=== PATIENT | female | born 1940 | race Caucasian/White ===

== ENCOUNTER → 2017-07-01 | Outpatient (CLI) | payer OTHER ==
--- NOTE | 2017-07-01 13:43 | MAMMOGRAPHY REPORT ---
BILATERAL DIGITAL DIAGNOSTIC MAMMOGRAM TOMOSYNTHESIS WITH CAD: 07/01/2017 CLINICAL HISTORY: Patient presents for a close follow-up of benign-appearing punctate microcalcificat ions in the posterior left breast, and also due for annual bilateral mammography. TECHNIQUE: Bilateral breast tomosynthesis in addition to standard 2D mammography was performed. Spot magnification left CC and ML views were also obtained. Current study was also evaluated with a Comp uter Aided Detection (CAD) system. COMPARISON: Comparison is made to exams dated: 06/30/2016 mammogram, 12/25/2015 mammogram, 06/21/2015 ultrasound, 06/21/2015 mammogram, 06/15/2015 mammogram, and 06/14/2014 mammogram - [facility]. BREAST COMPOSITION: The tissue of both breasts is almost entirely fatty. FINDINGS: Full field mammograms do not demonstrate any new suspicious masses, asymmetries or areas of architectural distortion. Previously observed nodular asymmetries in the right breast are no longer identified, confirming benignity. Again noted is a small grouping of microcalcifications in the 5:0 0 to 6:00 posterior left breast. When assessing these calcifications on the spot magnification views , they measure 2.9 mm in maximum dimension and have an amorphous morphology. When comparing back to prior spot magnification views, they are minimally increased in number comparing to those obtained on 06/21/2015. Therefore, they are considered indeterminate and definitive characterization with tissu e sampling is recommended. A discussion ensued regarding these calcifications and my preference for tissue sampling given a alvarez ge on the spot magnification views. However the change is very minimal and has occurred very slowly over the past 2 years, suggesting an indolent process. The patient would prefer to follow them as op posed to biopsy at this time and I think that could be a reasonable option given the very slow change . If we continue to follow would recommend repeat spot magnification views in 12 months at time of n ext annual bilateral exam. IMPRESSION: ACR BI-RADS CATEGORY 4: SUSPICIOUS There has been minimal interval increase in number of a small 2.9 mm grouping of amorphous macrocalci fications in the 5:00 to 6:00 posterior left breast, when comparing back to the 2015 mammograms. Giv en the slight detected change tissue sampling was recommended, and is my preference, although the pat ient wishes to continue watching him at this time. 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 Therefore she can obtain repeat spot magnification views at the time of next annual bilateral mammog scott in 1 year. Approximately 10% of breast cancers are not detected with mammography. A negative mammographic report should not delay biopsy if a clinically suggestive mass is present. Melba Butler M.D. ay/:07/01/2017 11:17:44 Field Reimbursement Manager: Salome RIVERS)(Min), [facility] letter sent: Abnormal 4/5 BI-RADS Code: ACR BI-RADS Category 4: Suspicious
== END | disposition home or self-care (01) ==
LOC: C.MAMM 10:38
PROVIDERS: ATTEND Internal Medicine
DX: R92.0 Mammographic microcalcification found on diagnostic imaging of breast (principal)

== ENCOUNTER → 2017-07-04 | Outpatient (CLI) | payer OTHER ==
[2017-07-04 12:07] LABS: BASO % 0.5 %; BASO ABS # 0.03 K/uL (0-0.2); COMPLETE YES; EOS % 2.7 %; HEMATOCRIT 44.4 % (37-47); IG% 0.3 %; LYMPH % 24.2 %; LYMPH ABS # 1.51 K/uL (1.2-3.4); MEAN CELL VOLUME 92.7 fL (80-100); MEAN CORPUSCULAR HEMOGLOBIN 31.1 pg (25-34); MEAN CORPUSCULAR HGB CONC 33.6 g/dl (32-36); MEAN PLATELET VOLUME 11.1 fL (7.4-10.4); MONO % 6.1 %; NEUT % 66.2 %; PLATELET COUNT 196 K/uL (130-400); RED BLOOD COUNT 4.79 M/uL (4.2-5.4); WHITE BLOOD COUNT 6.23 K/uL (4.8-10.8)
[2017-07-04 12:38] LABS: ALT/SGPT 25 U/L (12-78); BLOOD UREA NITROGEN 18 mg/dl (7-18); BUN/CREATININE RATIO 18.6 (10-20); CARBON DIOXIDE 29 mmol/L (21-32); CHLORIDE 105 mmol/L (98-107); CHOLESTEROL 219 mg/dl (0-200); CREATININE 0.98 mg/dl (0.60-1.20); GLUCOSE 91 mg/dl (70-99); SODIUM 140 mmol/L (136-145); TRIGLYCERIDES 157 mg/dl (0-150); VERY LOW DENSITY LIPOPROT CALC 31 mg/dl
[2017-07-04 12:49] LABS: ALKALINE PHOSPHATASE 53 U/L (45-117); AST/SGOT 22 U/L (15-37); CHOLESTEROL/HDL RATIO 3.3; FERRITIN 39.5 ng/ml (8.0-388.0); HDL CHOLESTEROL 67 mg/dl; LDL CHOLESTEROL CALCULATED 121 mg/dl
== END | disposition home or self-care (01) ==
LOC: C.LAB 10:40
PROVIDERS: ATTEND Internal Medicine
DX: M81.0 Age-related osteoporosis without current pathological fracture (principal)

== ENCOUNTER → 2017-07-17 | Outpatient (CLI) | payer OTHER | END | disposition home or self-care (01) | LOC: C.RDSM 14:11 | PROVIDERS: ATTEND Orthopaedic Surgery | DX: R52 Pain, unspecified (principal) ==

== ENCOUNTER → 2017-07-20 | Outpatient (CLI) | payer OTHER ==
[2017-07-20 12:28] LABS: BLOOD UREA NITROGEN 22 mg/dl (7-18); BUN/CREATININE RATIO 19.6 (10-20); CALCIUM 9.6 mg/dl (8.5-10.1); CARBON DIOXIDE 27 mmol/L (21-32); CHLORIDE 102 mmol/L (98-107); CREATININE 1.14 mg/dl (0.60-1.20); GLUCOSE 100 mg/dl (70-99); POTASSIUM 3.7 mmol/L (3.5-5.1); SODIUM 138 mmol/L (136-145)
[2017-07-22 03:31] LABS: ANTI-SS-A <1.0 NEG AI (<1.0 NEG); ANTI-SS-B <1.0 NEG AI (<1.0 NEG)
== END | disposition home or self-care (01) ==
LOC: C.LAB 10:36
PROVIDERS: ATTEND Internal Medicine
DX: I10 Essential (primary) hypertension (principal); M25.562 Pain in left knee

== ENCOUNTER 2021-07-04 17:24 | Inpatient (IN) ==
--- NOTE | 2021-07-04 18:20 | Emergency Department Note ---
Impression & Plan Bilateral pulmonary embolism, Mass of right lung, Hypoxia, Elevated brain natriuretic peptide (BNP) level ED Provider Note NAME: NIKOS WASSERMAN AGE: 80 SEX: F ARRIVES VIA: Ambulance INFORMANT: Patient ED PROVIDER(S): Jace Guajardo MD CHIEF COMPLAINT: Shortness of breath, edema. PLAN: Disposition: Admit MEDICAL DECISION MAKING: The patient is a pleasant 80-year-old woman with a past medical history of hypertension, hyperlipidemia who presents to emergency department via EMS for worsening shortness of breath over the past several days in the setting of ongoing shortness of breath and productive cough and congestion for the past month and a half where she has then developed bilateral lower extremity swelling. She reports she did have a COVID-19 a couple of weeks ago that was negative. She is vaccinated for COVID-19 numerous months ago and denies known COVID-19 exposures. She reports she did not contact her PCPs office because it "takes too long to be seen". She denies fevers, nausea, vomiting, diarrhea or urinary symptoms. She reports her legs have gotten so swollen and she has felt so fatigued that she is not walking over the past 24 hours. On arrival the patient is uncomfortable but no acute distress, afebrile with heart rate in the 90s stable vital signs. She appears hypervolemic with 2+ bilateral lower extremity pitting edema and mild JVD. She has diminished breath sounds throughout. EKG without overt acute ischemia. Chest X-ray demonstrates right upper lobe masslike consolidation better clarified on CT. WBC 14K, nonspecific. H/H and platelets within normal limits. Chemistry without metabolic acidosis. Electrolytes without significant abnormality. LFTs unremarkable. Troponin negative/undetectable. BNP is elevated at 6900 without prior values for comparison. Lipase within normal limits. COVID-19 PCR negative. Influenza PCR negative. RSV PCR negative. Her preliminary stat rad report CT of the chest demonstrates large bilateral pulmonary emboli with evidence of right heart strain. Large hiatal hernia is noted. Upon evaluation the patient continued to remain hemodynamically stable with O2 saturation 98% on 3 L nasal cannula. I reviewed the findings with the patient at the bedside. Denies any history of GI bleeding or bleeding otherwise. She agrees with plan for treatment with anticoagulation and admission. Case was discussed with [facility] [place] [facility] admitting resident with Dr. Ribeiro, [facility] hospitalist, who will evaluate the patient for admission. Triage Nursing notes reviewed and agree them. prior medical records reviewed Vital Signs: reviewed and remarkable for hypoxia. Differential diagnosis: Reactive airway disease, pneumonia, pneumothorax, COPD, CHF, infections, cardiac ischemia, pulmonary embolism, musculoskeletal, gastrointestinal, as well as other pathologies. ER treatment provided: See below. Diagnostics interpreted by me: ECG: Normal sinus rhythm, 86 bpm, no ectopy, no overt ST elevation or depression, QTC 430, QRS 66. Cardiac Monitoring: An order for continuous cardiac monitoring was placed and demonstrated normal sinus rhythm, 86 bpm, no ectopy. Laboratory studies: see below Imaging studies: See below STATRAD Preliminary Findings Only See Final Report For Complete Findings CTA CHEST: Large bilateral pulmonary emboli with right heart strain. Patchy bilateral pulmonary consolidations. Masslike consolidation lesion in the right upper lung field. Cardiomegaly. Large hiatal hernia with herniation of the stomach, omentum and the portions of the colon. Colonic diverticula. Small low-attenuation foci in the liver. Old granulomatous disease. Consultation(s): Case was discussed with Dr. Church, [facility] admitting resident with Dr. Ribeiro, [facility] hospitalist, who will evaluate the patient for admission. HPI: The patient is a pleasant 80-year-old woman with a past medical history of hypertension, hyperlipidemia who presents to emergency department via EMS for worsening shortness of breath over the past several days in the setting of ongoing shortness of breath and productive cough and congestion for the past month and a half where she has then developed bilateral lower extremity swelling. She reports she did have a COVID-19 a couple of weeks ago that was negative. She is vaccinated for COVID-19 numerous months ago and denies known COVID-19 exposures. She reports she did not contact her PCPs office because it "takes too long to be seen". She denies fevers, nausea, vomiting, diarrhea or urinary symptoms. She reports her legs have gotten so swollen and she has felt so fatigued that she is not walking over the past 24 hours. ROS: See above HPI for pertinent positives & negatives. A total of 10 systems reviewed and were otherwise negative. PAST MEDICAL HISTORY: see Below PAST SURGICAL HISTORY: see Below FAMILY HISTORY:See Below SOCIAL HISTORY: see Below HOME MEDICATIONS: see Below ALLERGIES: see Below VITALS: see Below PHYSICAL EXAMINATION: GENERAL: Awake, alert, fatigued-appearing, in no distress HENT: Normocephalic, atraumatic. Oropharynx unremarkable. EYES: Normal conjunctiva. Sclera non-icteric. NECK: Supple. No nuchal rigidity. FROM. Mild JVD. RESPIRATORY: Diminished breath sounds bilaterally. Mildly dyspneic without significant work of breathing. CARDIAC: Regular rate, normal rhythm. Extremities warm and well perfused. Pulses equal. ABDOMEN: Soft, non-distended. No tenderness to palpation. No rebound or guarding. No masses. RECTAL: Deferred. MUSCULOSKELETAL: Chest examination reveals no tenderness. The back is symmetrical on inspection without obvious abnormality. There is no CVA tenderness to palpation. No joint edema. LOWER EXTREMITIES: Calves are equal size bilaterally and non-tender. 2+ bilateral lower extremity pitting edema. No discoloration. NEURO: Normal sensorium. No sensory or motor deficits noted. SKIN: No rash or jaundice noted. ED COURSE: Critical Care: I have personally spent greater than 45 minutes of critical care time in the direct management of this patient. This includes bedside care, interpretation of diagnostic studies, and testing, discussion with consultants, patient, and family members, and other required patient management activities. This 45 minutes is in excess of all separately billable procedures. 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) Hyperlipidemia Hypertension Iron deficiency anemia due to chronic blood loss Left knee pain Lumbar facet joint syndrome Melanocytic nevus of left lower extremity Melanocytic nevus of right lower extremity Melanocytic nevus of trunk Muscle weakness Osteoporosis, senile Peroneal muscular atrophy Reactive depression (situational) Renal insufficiency, mild Restless legs syndrome Sacroiliac joint pain Schatzki's ring Sensorineural hearing loss (SNHL) of both ears Sicca syndrome Stage 3a chronic kidney disease Surgical History History of blepharoplasty History of colonoscopy 2010 History of endoscopy capsule endoscopy-2006 History of esophagogastroduodenoscopy (EGD) 200, 2005 History of surgery history of coronal brow lift History of vein stripping Status post biopsy of skin Family History Mother Heart disease Chronic venous embolism and thrombosis of deep vessels of lower extremity Breast cancer Unknown Axjjjef-Xldgi-Ffsvf disease Father Myocardial infarction Uncle Prostate cancer Denies family history of Ovarian cancer Colorectal cancer Social History Smoking Status: Never smoker Second Hand Exposure: No; Hx Alcohol Use: Yes Alcohol type: beer, wine and hard liquor Alcohol Intake Frequency: 2-4 x/Month Hx Substance Use: No Preferred Language: [place]ese Visual Impairment: Limited Hearing Ability: Normal Playground Attendant Required: No marital status: Current Living Situation: Alone current occupational status: retired How many Children do You have: 2 Feels Safe at Home: Yes and No Childhood Exposure to Second-Hand Smoke: Yes caffeine: Yes Dental Care, Regularly: Yes Physical Activity Frequency: 3-4 Times per Week Seatbelt Use: always Sunscreen Use: Yes Allergies Allergies Allergy/AdvReac Type Severity Reaction Status Date / Time animal dander Allergy Intermediate CONGESTION Verified 07/04/21 18:19 mold Allergy Intermediate CONGESTION Verified 07/04/21 18:19 pollen extracts Allergy Intermediate CONGESTION Verified 07/04/21 18:19 adhesive tape Allergy Mild SKIN Verified 07/04/21 18:19 IRRITATION fluoxetine [From Prozac] Allergy Unknown Unknown Verified 07/04/21 18:19 Influenza Virus Vaccines Allergy Unknown Unknown Verified 07/04/21 18:19 latex Allergy Unknown Unknown Verified 07/04/21 18:19 NSAIDS (Non-Steroidal AdvReac Intermediate POSSIBLE Verified 07/04/21 18:19 Anti-Inflamma KIDNEY DAMAGE PER PT. Home Meds Previous Rx's Medication Instructions Recorded gabapentin 300 mg capsule 300 mg PO BID #180 cap 11/12/20 metoprolol succinate 25 mg 25 mg PO DAILY #90 tab 11/12/20 tablet,extended release 24 hr duloxetine 20 mg capsule,delayed 20 mg PO DAILY #30 cap 05/30/21 release Results & Data (ED) Vital Signs Vital Signs - 24 hr 07/04/21 18:10 07/04/21 18:15 07/04/21 18:45 Temperature 36.9 C Temperature Source Oral Pulse Rate 93 H 84 Pulse Rate [Apical] Pulse Rhythm Regular Pulse Rhythm [Apical] Pulse Strength [Apical] Respiratory Rate 18 20 Respiratory Effort / Characteristics Non-Labored Spontaneous Spontaneous Respiratory Depth Normal Normal Respiratory Pattern Regular Regular Blood Pressure 110/84 Blood Pressure [Right Arm] Blood Pressure Mean 92 Blood Pressure Mean [Right Arm] Blood Pressure Position Lying Pulse Oximetry 96 94 Oxygen Delivery Method Nasal Cannula Nasal Cannula Nasal Cannula Oxygen Flow Rate 4 4 3 Sepsis Recent Fever Within 48 Hours No Sepsis New/Unexplained Change in Mental Status N/A Sepsis Action Taken by Nursing No Action Required 07/04/21 22:16 Temperature Temperature Source Pulse Rate Pulse Rate [Apical] 88 Pulse Rhythm Pulse Rhythm [Apical] Regular Pulse Strength [Apical] Normal Respiratory Rate 20 Respiratory Effort / Characteristics Non-Labored Respiratory Depth Normal Respiratory Pattern Blood Pressure Blood Pressure [Right Arm] 105/76 Blood Pressure Mean Blood Pressure Mean [Right Arm] 85 Blood Pressure Position Pulse Oximetry 98 Oxygen Delivery Method Nasal Cannula Oxygen Flow Rate 3 Sepsis Recent Fever Within 48 Hours Sepsis New/Unexplained Change in Mental Status Sepsis Action Taken by Nursing Laboratory Data Attestation: I reviewed the patient's lab results. Result diagrams: 07/04/21 18:40 07/04/21 18:40 Lab Results 07/04/21 07/04/21 07/04/21 Range/Units 18:40 18:40 18:40 WBC 14.65 H (4.8-10.8) K/uL RBC 4.65 (4.2-5.4) M/uL Hgb 14.3 (12.0-16.0) g/dL Hct 42.3 (37-47) % MCV 91.0 (80-100) fL MCH 30.8 (25-34) pg MCHC 33.8 (32-36) g/dL RDW Std Deviation 51.1 H (36.4-46.3) fL RDW Coeff of Aurelio 15.4 H (11.5-14.5) % Plt Count 268 (130-400) K/uL MPV 11.1 H (7.4-10.4) fL Immature Gran % (Auto) 0.5 % Neut % (Auto) 85.0 % Lymph % (Auto) 7.5 % Waller % (Auto) 6.3 % Eos % (Auto) 0.5 % Baso % (Auto) 0.2 % Neut # (Auto) 12.44 H (1.4-6.5) K/uL Lymph # (Auto) 1.10 L (1.2-3.4) K/uL Waller # (Auto) 0.93 H (0.11-0.59) K/uL Eos # (Auto) 0.08 (0-0.5) K/uL Baso # (Auto) 0.03 (0-0.2) K/uL Immature Gran # (Auto) 0.07 H (0.00-0.02) K/uL PT 11.9 (9.0-12.0) Seconds INR 1.2 H (0.9-1.1) APTT (21.0-31.0) Seconds PTT Ratio Sodium 137 (136-145) mmol/L Potassium 4.2 (3.5-5.1) mmol/L Chloride 105 (98-107) mmol/L Carbon Dioxide 24 (21-32) mmol/L Anion Gap 9.0 (3-11) BUN 23 H (7-18) mg/dl Creatinine 1.10 (0.6-1.2) mg/dl Est Cr Clr Drug Dosing 44.7 ml/min Est GFR ( Amer) 54.9 ml/min Est GFR (Non-Af Amer) 47.4 ml/min BUN/Creatinine Ratio 21.1 H (10-20) Glucose 117 H (70-99) mg/dl Calcium 9.4 (8.5-10.1) mg/dl Phosphorus 3.1 (2.5-4.9) mg/dl Magnesium 2.2 (1.8-2.4) mg/dl Total Bilirubin 1.1 H (0.2-1) mg/dl AST 37 (15-37) U/L ALT 49 (12-78) U/L Alkaline Phosphatase 97 (45-117) U/L Troponin I < 0.015 (0-0.045) ng/ml NT-Pro-B Natriuret Pep 6952 H (0-1800) pg/ml Total Protein 7.3 (6.4-8.2) gm/dl Albumin 3.0 L (3.4-5.0) gm/dl Globulin 4.3 H (2.5-4.0) gm/dl Albumin/Globulin Ratio 0.7 L (0.9-2) Lipase 89 (73-393) U/L SARS-CoV-2 (PCR) (Negative) Influenza Type A (PCR) (Neg) Influenza Type B (PCR) (Neg) RSV (RT-PCR) (Neg) 07/04/21 07/04/21 Range/Units 18:59 23:13 WBC (4.8-10.8) K/uL RBC (4.2-5.4) M/uL Hgb (12.0-16.0) g/dL Hct (37-47) % MCV (80-100) fL MCH (25-34) pg MCHC (32-36) g/dL RDW Std Deviation (36.4-46.3) fL RDW Coeff of Aurelio (11.5-14.5) % Plt Count (130-400) K/uL MPV (7.4-10.4) fL Immature Gran % (Auto) % Neut % (Auto) % Lymph % (Auto) % Waller % (Auto) % Eos % (Auto) % Baso % (Auto) % Neut # (Auto) (1.4-6.5) K/uL Lymph # (Auto) (1.2-3.4) K/uL Waller # (Auto) (0.11-0.59) K/uL Eos # (Auto) (0-0.5) K/uL Baso # (Auto) (0-0.2) K/uL Immature Gran # (Auto) (0.00-0.02) K/uL PT (9.0-12.0) Seconds INR (0.9-1.1) APTT 26.0 (21.0-31.0) Seconds PTT Ratio 1.0 Sodium (136-145) mmol/L Potassium (3.5-5.1) mmol/L Chloride (98-107) mmol/L Carbon Dioxide (21-32) mmol/L Anion Gap (3-11) BUN (7-18) mg/dl Creatinine (0.6-1.2) mg/dl Est Cr Clr Drug Dosing ml/min Est GFR ( Amer) ml/min Est GFR (Non-Af Amer) ml/min BUN/Creatinine Ratio (10-20) Glucose (70-99) mg/dl Calcium (8.5-10.1) mg/dl Phosphorus (2.5-4.9) mg/dl Magnesium (1.8-2.4) mg/dl Total Bilirubin (0.2-1) mg/dl AST (15-37) U/L ALT (12-78) U/L Alkaline Phosphatase (45-117) U/L Troponin I (0-0.045) ng/ml NT-Pro-B Natriuret Pep (0-1800) pg/ml Total Protein (6.4-8.2) gm/dl Albumin (3.4-5.0) gm/dl Globulin (2.5-4.0) gm/dl Albumin/Globulin Ratio (0.9-2) Lipase (73-393) U/L SARS-CoV-2 (PCR) NEGATIVE (Negative) Influenza Type A (PCR) Negative (Neg) Influenza Type B (PCR) Negative (Neg) RSV (RT-PCR) Negative (Neg) Administered Medications Heparin Sodium/Dextrose (Heparin Sodium/Dextrose) 25,000 units in 500 mls @ 25 mls/hr IV .Q20H [facility]; Protocol Stop: 08/03/21 23:14 Last Admin: 07/05/21 00:13 Dose: 1,250 units/hr, 25 mls/hr Documented by: [id number] Cosigned by: [id number] Discontinued Medications Enoxaparin Sodium (Enoxaparin 1 Mg/Kg) 1 mg SQ NOW STA Stop: 07/04/21 22:46 Last Admin: 07/04/21 23:36 Dose: Not Given Documented by: [id number] Heparin Sodium (Porcine) (Heparin Sod (Porcine) 1000 Unit/Ml) 6,000 units IV NOW ONE Stop: 07/04/21 23:13 Last Admin: 07/05/21 00:12 Dose: 6,000 units Documented by: [id number] Cosigned by: [id number] Ioversol (Optiray 320 125ml) 115 ml IV ONCE ONE Stop: 07/04/21 21:57 Last Admin: 07/04/21 21:56 Dose: 115 ml Documented by: [id number] Imaging Data Radiologist's Impression: Chest X-Ray 07/04/21 18:13 XR chest 1V portable CLINICAL HISTORY: Chest Pain COMPARISON STUDY: No previous studies for comparison. FINDINGS: There is no pneumothorax. No definite pleural effusion is present. Note is made of cardiomegaly. There is no evidence for pulmonary edema. A large hiatal hernia is noted. This likely contains a portion of the transverse colon. Mild left basilar opacity is present. A right apical density is present IMPRESSION: 1. Right apical density. Although this could be artifactual, airspace opacity or mass could appear similar. Nonemergent chest CT is recommended for further evaluation. 2. Large hiatal hernia which likely contains a portion of the transverse colon. 3. Left basilar opacity. This likely reflects atelectasis although an infectious process could appear similar. This can be assessed on chest CT. ACT 112: Positive. There are findings on this exam that require communication between the performing entity and the patient following Patient Test Result Information Act ([place] Act 112) guidelines. Electronically signed by: Bj Crandall M.D. 07/04/2021 6:45 PM Discharge Plan Visit Data Chief Complaint: Shortness of Breath/Dyspnea Stated Complaint: SOB, EDEMA TO LEGS, HYPOXIA Discharge Problem: Bilateral pulmonary embolism, Mass of right lung, Hypoxia, Elevated brain natriuretic peptide (BNP) level Forms Stand Alone Forms: [facility] [employer] Prescriptions Prescriptions: No Action gabapentin 300 mg capsule 300 mg PO BID Qty: 180 RF: 3 metoprolol succinate 25 mg tablet extended release 24 hr 25 mg PO DAILY Qty: 90 RF: 3 duloxetine 20 mg capsule,delayed release(DR/EC) 20 mg PO DAILY Qty: 30 RF: 2 Referrals Referrals: Hoang Hawley MD [Primary Care Provider] -
--- NOTE | 2021-07-04 18:46 | XRay Report ---
XR chest 1V portable CLINICAL HISTORY: Chest Pain COMPARISON STUDY: No previous studies for comparison. FINDINGS: There is no pneumothorax. No definite pleural effusion is present. Note is made of cardiome brisa. There is no evidence for pulmonary edema. A large hiatal hernia is noted. This likely contains a portion of the transverse colon. Mild left basilar opacity is present. A right apical density is pr esent IMPRESSION: 1. Right apical density. Although this could be artifactual, airspace opacity or mass could appear si milar. Nonemergent chest CT is recommended for further evaluation. 2. Large hiatal hernia which likely contains a portion of the transverse colon. 3. Left basilar opacity. This likely reflects atelectasis although an infectious process could appear similar. This can be assessed on chest CT. ACT 112: Positive. There are findings on this exam that require communication between the performing entity and the patient following Patient Test Result Information Act ([place] Act 112) guidelines. Electronically signed by: Bj Crandall M.D. 07/04/2021 6:45 PM
[2021-07-04 19:13] LABS: Basophils # (auto) 0.03 K/uL (0-0.2); Basophils % (auto) 0.2 %; Eosinophils # (auto) 0.08 K/uL (0-0.5); Eosinophils % (auto) 0.5 %; Hematocrit (blood only) 42.3 % (37-47); Hemoglobin 14.3 g/dL (12.0-16.0); Immature Granulocytes # (auto) 0.07 K/uL (0.00-0.02); Immature Granulocytes % (auto) 0.5 %; Lymphocytes % (auto) 7.5 %; Mean Corpuscular Hemoglobin 30.8 pg (25-34); Mean Corpuscular Hgb Conc 33.8 g/dL (32-36); Mean Platelet Volume 11.1 fL (7.4-10.4); Monocytes # (auto) 0.93 K/uL (0.11-0.59); Monocytes % (auto) 6.3 %; Neutrophils # (auto) 12.44 K/uL (1.4-6.5); Platelet Count 268 K/uL (130-400); RDW Coefficient of Variation 15.4 % (11.5-14.5); RDW Standard Deviation 51.1 fL (36.4-46.3); Red Blood Count 4.65 M/uL (4.2-5.4); White Blood Count 14.65 K/uL (4.8-10.8)
[2021-07-04 19:30] LABS: Alanine Aminotransferase 49 U/L (12-78); Aspartate Aminotransferase 37 U/L (15-37); BUN Creatinine Ratio 21.1 (10-20); Blood Urea Nitrogen 23 mg/dl (7-18); Calcium 9.4 mg/dl (8.5-10.1); Carbon Dioxide 24 mmol/L (21-32); Chloride 105 mmol/L (98-107); Creatinine Clr Calc Pharmacy 44.7 ml/min; Est GFR (African American) 54.9 ml/min; Est GFR (Non-African American) 47.4 ml/min; Glucose 117 mg/dl (70-99); Lipase 89 U/L (73-393); Magnesium 2.2 mg/dl (1.8-2.4); Potassium 4.2 mmol/L (3.5-5.1); Sodium 137 mmol/L (136-145)
[2021-07-04 19:36] LABS: Albumin Globulin Ratio 0.7 (0.9-2); Alkaline Phosphatase 97 U/L (45-117); Bilirubin,Total 1.1 mg/dl (0.2-1); Globulin 4.3 gm/dl (2.5-4.0); NT Pro B Type Natriuretic Pept 6952 pg/ml (0-1800); Phosphorus 3.1 mg/dl (2.5-4.9); Total Protein 7.3 gm/dl (6.4-8.2); Troponin I < 0.015 ng/ml (0-0.045)
[2021-07-04 19:40] LABS: INR 1.2 (0.9-1.1); Prothrombin Time 11.9 Seconds (9.0-12.0)
[2021-07-04 19:50] LABS: Influenza A virus by PCR Negative (Neg); Influenza B virus by PCR Negative (Neg); RSV by PCR Negative (Neg); SARS CoV2 RNA(COVID-19) InHosp NEGATIVE (Negative)
[2021-07-04] MEDS ORDERED: OPTIRAY 320 125ml IV ONE (21:56)
[2021-07-04] MEDS ORDERED: ENOXAPARIN 1 MG/KG SQ STA (22:45)
[2021-07-04] MEDS ORDERED: Heparin IV Adult Wt-Based Standard WITH Bolus Protocol IV STA (22:57)
--- NOTE | 2021-07-04 23:02 | History & Physical Report ---
Date of Service July 04, 2021 Assessment & Plan (1) Bilateral pulmonary embolism: Plan: Patient is a pleasant 80 year old female with PMHx HTN, HLD, CKD stage 3a, Varicose Veins, Melanoma, who presents with chief complaint of 6 month history of worsening SOB with exertion, acutely worsened 1 week ago when she was unable to catch her breath after a "panic attack," found to have large bilateral pulmonary emboli with right heart strain in addition to a masslike consolidation lesion in the right upper lung field. Bilateral PE -CTA stat read noting large bilateral pulmonary emboli with R heart strain. Also noting a masslike consolidation in the R upper lung field. -PESI score 130, class V with very high risk 10-24.5% 30 day mortality -Hypercoagulable panel drawn -Heparin gtt started with bolus -Continue supplemental O2 PRN -Echo in AM secondary to R heart strain -Venous dopplers of LE b/l R Lung Mass -R lung mass noted on stat read of chest CTA -No previous history of tobacco use -Prior history of melanoma, but not since age 29, no other cancer history -Await final read - suspect will require follow up imaging for monitoring Elevated BNP -BNP elevated at 6952 -No previous history of heart failure -Suspect that elevation is secondary to significant R heart strain from PE's -Will treat PE's with heparin gtt as above -Echo in AM LE Edema -Suspect multifactorial from R heart strain secondary to PE's in addition to history of varicose veins and likely chronic venous insufficiency -Will hold on diuresis at this time, allow for treatment of PE HTN -Continue home metoprolol succinate Dispo: Med/Surg Telemetry FEN: HH diet DVT: Heparin gtt Code: DNR/DNI (2) Mass of right lung: History of Present Illness Chief Complaint: SOB Primary Care Provider: Hoang Hawley MD Patient is a pleasant 80 year old female with PMHx HTN, HLD, CKD stage 3a, Varicose Veins, Melanoma, who presents with chief complaint of 6 month history of worsening SOB with exertion, acutely worsened 1 week ago when she was unable to catch her breath after a "panic attack," found to have large bilateral pulmonary emboli with right heart strain in addition to a masslike consolidation lesion in the right upper lung field. Patient notes that for the past 6 months she has noted some L sided lateral chest/rib discomfort whenever she would exert herself. She also notes that for the past 1 month she has had an ongoing wet cough which she was tested for COVID-19 2 weeks ago and found to be negative. She notes 1 week ago she had an episode of SOB where she feels she had a "panic attack" and was unable to catch her breath or recover. She has also noticed worsening swelling of her LE b/l in the past 1-2 weeks. She notes a history of varicose veins with vein stripping in her 20's, but states that they ended up returning anyways. She also notes a history of melanoma on her back that was removed at age 29. She denies any history of blood clots. She does note SOB with exertion now in addition to LE swelling and tenderness in her legs b/l, L>R. She denies any current chest pain, chest pressure, fever, chills, abdominal pain, dysuria, NVD. Med Hx: HTN, HLD, CKD stage 3a, Varicose Veins, Melanoma Surg Hx: Varicose vein ablation Soc Hx: Denies tobacco, alcohol, illicit drug use Allergies Allergy/AdvReac Type Severity Reaction Status Date / Time animal dander Allergy Intermediate CONGESTION Verified 07/04/21 18:19 mold Allergy Intermediate CONGESTION Verified 07/04/21 18:19 pollen extracts Allergy Intermediate CONGESTION Verified 07/04/21 18:19 adhesive tape Allergy Mild SKIN Verified 07/04/21 18:19 IRRITATION fluoxetine [From Prozac] Allergy Unknown Unknown Verified 07/04/21 18:19 Influenza Virus Vaccines Allergy Unknown Unknown Verified 07/04/21 18:19 latex Allergy Unknown Unknown Verified 07/04/21 18:19 NSAIDS (Non-Steroidal AdvReac Intermediate POSSIBLE Verified 07/04/21 18:19 Anti-Inflamma KIDNEY DAMAGE PER PT. 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) Hyperlipidemia Hypertension Iron deficiency anemia due to chronic blood loss Left knee pain Lumbar facet joint syndrome Melanocytic nevus of left lower extremity Melanocytic nevus of right lower extremity Melanocytic nevus of trunk Muscle weakness Osteoporosis, senile Peroneal muscular atrophy Reactive depression (situational) Renal insufficiency, mild Restless legs syndrome Sacroiliac joint pain Schatzki's ring Sensorineural hearing loss (SNHL) of both ears Sicca syndrome Stage 3a chronic kidney disease Surgical History History of blepharoplasty History of colonoscopy 2010 History of endoscopy capsule endoscopy-2006 History of esophagogastroduodenoscopy (EGD) 200, 2005 History of surgery history of coronal brow lift History of vein stripping Status post biopsy of skin Family History Mother Heart disease Chronic venous embolism and thrombosis of deep vessels of lower extremity Breast cancer Unknown [id number]-[id number]-Mriju disease Father Myocardial infarction Uncle Prostate cancer Denies family history of Ovarian cancer Colorectal cancer Social History Smoking Status: Never smoker Second Hand Exposure: No; Hx Alcohol Use: Yes Alcohol type: beer, wine and hard liquor Alcohol Intake Frequency: 2-4 x/Month Hx Substance Use: No Preferred Language: Venezuelan Visual Impairment: Limited Hearing Ability: Normal Bulker Required: No marital status: Current Living Situation: Alone current occupational status: retired How many Children do You have: 2 Feels Safe at Home: Yes and No Childhood Exposure to Second-Hand Smoke: Yes caffeine: Yes Dental Care, Regularly: Yes Physical Activity Frequency: 3-4 Times per Week Seatbelt Use: always Sunscreen Use: Yes Review of Systems Review of Systems: All systems reviewed & are unremarkable except as noted in Subjective Physical Exam Constitutional: well developed, well nourished and + ill appearing; no acute distress Eyes: PERRL, conjunctivae normal, anicteric sclerae ENMT: external ear and nose normal, oropharynx normal Neck: trachea midline, no thyromegaly Respiratory: normal respiratory effort and + cough; no respiratory distress Auscultation: lungs clear to auscultation bilaterally and + diminished lung sounds (at bases) Cardiovascular: Rate/Rhythm: regular rate and regular rhythm Heart Sounds: no murmur Extremities: + calf tenderness (b/l worse on R thank L ) and + edema (2-3+ b/l to the knee ) Gastrointestinal (Abdomen): normal bowel sounds, soft, nontender, no hepatosplenomegaly Musculoskeletal: Head/Neck/Chest: normocephalic and head atraumatic Skin: + rash (warmth and redness of the medial R ankle ) Neurologic: PERRL, EOMI, accommodation nl, no face palsy, no dysarthria moves all extremities Psychiatric: A+Ox3, euthymic affect Results & Data Results & Data ([facility]) Vital Signs (Past 12 Hours) Vital Signs Temp Pulse Resp BP Pulse Ox 07/04/21 18:45 84 20 94 07/04/21 18:10 36.9 C 93 H 18 110/84 96 Laboratory Results Laboratory Results - last 24 hr 07/04/21 07/04/21 07/04/21 18:40 18:40 18:40 WBC 14.65 H RBC 4.65 Hgb 14.3 Hct 42.3 MCV 91.0 MCH 30.8 MCHC 33.8 RDW Std Deviation 51.1 H RDW Coeff of Aurelio 15.4 H Plt Count 268 MPV 11.1 H Immature Gran % (Auto) 0.5 Neut % (Auto) 85.0 Lymph % (Auto) 7.5 Vernon % (Auto) 6.3 Eos % (Auto) 0.5 Baso % (Auto) 0.2 Neut # (Auto) 12.44 H Lymph # (Auto) 1.10 L Vernon # (Auto) 0.93 H Eos # (Auto) 0.08 Baso # (Auto) 0.03 Immature Gran # (Auto) 0.07 H PT 11.9 INR 1.2 H APTT PTT Ratio LA PTT Screen Protein C Activity Protein S Activity Antithrombin III Activ Factor V Leiden Mutat Factor V Leiden Interp Sodium 137 Potassium 4.2 Chloride 105 Carbon Dioxide 24 Anion Gap 9.0 BUN 23 H Creatinine 1.10 Est Cr Clr Drug Dosing 44.7 Est GFR ( Amer) 54.9 Est GFR (Non-Af Amer) 47.4 BUN/Creatinine Ratio 21.1 H Glucose 117 H Calcium 9.4 Phosphorus 3.1 Magnesium 2.2 Total Bilirubin 1.1 H AST 37 ALT 49 Alkaline Phosphatase 97 Troponin I < 0.015 NT-Pro-B Natriuret Pep 6952 H Total Protein 7.3 Albumin 3.0 L Globulin 4.3 H Albumin/Globulin Ratio 0.7 L Lipase 89 Homocysteine Beta-2-GPI IgG Ab Beta-2-GPI IgM Ab Anti-Cardiolipin IgG Ab Anti-Cardiolipin IgM Ab SARS-CoV-2 (PCR) Influenza Type A (PCR) Influenza Type B (PCR) RSV (RT-PCR) Prothrombin Gene Mutate Prothromb Gene Comment 07/04/21 07/04/21 07/04/21 18:59 23:13 23:13 WBC RBC Hgb Hct MCV MCH MCHC RDW Std Deviation RDW Coeff of Aurelio Plt Count MPV Immature Gran % (Auto) Neut % (Auto) Lymph % (Auto) Vernon % (Auto) Eos % (Auto) Baso % (Auto) Neut # (Auto) Lymph # (Auto) Vernon # (Auto) Eos # (Auto) Baso # (Auto) Immature Gran # (Auto) PT INR APTT PTT Ratio LA PTT Screen Pending Protein C Activity Pending Protein S Activity Pending Cancelled Antithrombin III Activ Pending Factor V Leiden Mutat Factor V Leiden Interp Sodium Potassium Chloride Carbon Dioxide Anion Gap BUN Creatinine Est Cr Clr Drug Dosing Est GFR ( Amer) Est GFR (Non-Af Amer) BUN/Creatinine Ratio Glucose Calcium Phosphorus Magnesium Total Bilirubin AST ALT Alkaline Phosphatase Troponin I NT-Pro-B Natriuret Pep Total Protein Albumin Globulin Albumin/Globulin Ratio Lipase Homocysteine Beta-2-GPI IgG Ab Beta-2-GPI IgM Ab Anti-Cardiolipin IgG Ab Pending Anti-Cardiolipin IgM Ab Pending SARS-CoV-2 (PCR) NEGATIVE Influenza Type A (PCR) Negative Influenza Type B (PCR) Negative RSV (RT-PCR) Negative Prothrombin Gene Mutate Prothromb Gene Comment 07/04/21 07/04/21 07/04/21 23:13 23:13 23:13 WBC RBC Hgb Hct MCV MCH MCHC RDW Std Deviation RDW Coeff of Aurelio Plt Count MPV Immature Gran % (Auto) Neut % (Auto) Lymph % (Auto) Vernon % (Auto) Eos % (Auto) Baso % (Auto) Neut # (Auto) Lymph # (Auto) Vernon # (Auto) Eos # (Auto) Baso # (Auto) Immature Gran # (Auto) PT INR APTT PTT Ratio LA PTT Screen Protein C Activity Protein S Activity Antithrombin III Activ Factor V Leiden Mutat Pending Factor V Leiden Interp Pending Sodium Potassium Chloride Carbon Dioxide Anion Gap BUN Creatinine Est Cr Clr Drug Dosing Est GFR ( Amer) Est GFR (Non-Af Amer) BUN/Creatinine Ratio Glucose Calcium Phosphorus Magnesium Total Bilirubin AST ALT Alkaline Phosphatase Troponin I NT-Pro-B Natriuret Pep Total Protein Albumin Globulin Albumin/Globulin Ratio Lipase Homocysteine Pending Beta-2-GPI IgG Ab Pending Beta-2-GPI IgM Ab Pending Anti-Cardiolipin IgG Ab Anti-Cardiolipin IgM Ab SARS-CoV-2 (PCR) Influenza Type A (PCR) Influenza Type B (PCR) RSV (RT-PCR) Prothrombin Gene Mutate Pending Prothromb Gene Comment Pending 07/04/21 23:13 WBC RBC Hgb Hct MCV MCH MCHC RDW Std Deviation RDW Coeff of Aurelio Plt Count MPV Immature Gran % (Auto) Neut % (Auto) Lymph % (Auto) Vernon % (Auto) Eos % (Auto) Baso % (Auto) Neut # (Auto) Lymph # (Auto) Vernon # (Auto) Eos # (Auto) Baso # (Auto) Immature Gran # (Auto) PT INR APTT 26.0 PTT Ratio 1.0 LA PTT Screen Protein C Activity Protein S Activity Antithrombin III Activ Factor V Leiden Mutat Factor V Leiden Interp Sodium Potassium Chloride Carbon Dioxide Anion Gap BUN Creatinine Est Cr Clr Drug Dosing Est GFR ( Amer) Est GFR (Non-Af Amer) BUN/Creatinine Ratio Glucose Calcium Phosphorus Magnesium Total Bilirubin AST ALT Alkaline Phosphatase Troponin I NT-Pro-B Natriuret Pep Total Protein Albumin Globulin Albumin/Globulin Ratio Lipase Homocysteine Beta-2-GPI IgG Ab Beta-2-GPI IgM Ab Anti-Cardiolipin IgG Ab Anti-Cardiolipin IgM Ab SARS-CoV-2 (PCR) Influenza Type A (PCR) Influenza Type B (PCR) RSV (RT-PCR) Prothrombin Gene Mutate Prothromb Gene Comment Diagnostic Findings Preliminary Findings Only See Final Report For Complete Findings CTA CHEST: Large bilateral pulmonary emboli with right heart strain. Patchy bilateral pulmonary consolidations. Masslike consolidation lesion in the right upper lung field. Cardiomegaly. Large hiatal hernia with herniation of the stomach, omentum and the portions of the colon. Colonic diverticula. Small low-attenuation foci in the liver. Old granulomatous disease. Radiologist: Nataly Velasquez M.D. Study ready at 22:10 and initial results transmitted at 22:26 Supervising Physician Co-Signing Physician Notes Patient seen and examined, chart reviewed, case discussed with Dr. Church and I agree with his assessment and plan as above. In brief, patient is an 80yo femal e with remote history of melanoma presenting with progressive dyspnea - found with large bilateral PEs, bilateral DVTs, right heart strain She is hemodynamically stable. Not tachycardic. BP 123/73 presently. on 3L/min NC saturating 97% High PESI score - largely attributable to remote history of melanoma. RUL lesion raises concern for new malignancy Exam with 3+ pitting edema of bilateral LE; warmth, tenderness Lungs CTA +S1/S2, regular, no m/r/g +BS, soft, NT/ND Labs and images reviewed Assessment/Plan -80yo female with bilateral PEs, DVT, large clot burden noted with right heart strain noted on CT. Elevated BNP, troponin WNL. HD stable, mild hypoxia now on NC Heparin bolus received, now on gtt Check echo Hypercoag panel sent from ER Consider pulmonary consultation re: RUL mass Remainder of plan as above Resident Activity Tracking Resident Involvement: Resident Care Provided Care Provided: Adult Hospital Medicine
[2021-07-04] MEDS ORDERED: HEPARIN SOD (PORCINE) 1000 UNIT/ML IV ONE (23:12)
[2021-07-05] MEDS: HEPARIN SODIUM/DEXTROSE 25,000 UNITS/500 ML BAG IV SCH ×2 (00:13→20:43)
[2021-07-05] MEDS ORDERED: ACETAMINOPHEN 325 MG TAB PO PRN (01:17)
[2021-07-05] MEDS ORDERED: ONDANSETRON INJ 2 MG/ML 2 ML VIAL IV PRN (01:17)
--- NOTE | 2021-07-05 04:38 | Billing Data ---
Date of Service July 04, 2021 Coding Level of Care Code 27889 Initial Inpt Care Lvl 2
[2021-07-05 06:39] LABS: Basophils # (auto) 0.03 K/uL (0-0.2); Basophils % (auto) 0.3 %; Eosinophils # (auto) 0.09 K/uL (0-0.5); Eosinophils % (auto) 0.9 %; Hematocrit (blood only) 39.2 % (37-47); Immature Granulocytes # (auto) 0.03 K/uL (0.00-0.02); Immature Granulocytes % (auto) 0.3 %; Lymphocytes # (auto) 1.26 K/uL (1.2-3.4); Lymphocytes % (auto) 13.2 %; Mean Corpuscular Hemoglobin 30.4 pg (25-34); Mean Corpuscular Hgb Conc 33.2 g/dL (32-36); Mean Corpuscular Volume 91.6 fL (80-100); Mean Platelet Volume 10.5 fL (7.4-10.4); Monocytes # (auto) 0.79 K/uL (0.11-0.59); Monocytes % (auto) 8.2 %; Neutrophils # (auto) 7.38 K/uL (1.4-6.5); Neutrophils % (auto) 77.1 %; Platelet Count 244 K/uL (130-400); RDW Coefficient of Variation 15.5 % (11.5-14.5); RDW Standard Deviation 51.2 fL (36.4-46.3); Red Blood Count 4.28 M/uL (4.2-5.4); White Blood Count 9.58 K/uL (4.8-10.8)
[2021-07-05 07:06] LABS: Partial Thromboplastin Ratio 3.7
[2021-07-05 07:08] LABS: BUN Creatinine Ratio 20.3 (10-20); Calcium 8.9 mg/dl (8.5-10.1); Creatinine Clr Calc Pharmacy 49.7 ml/min; Est GFR (African American) 62.4 ml/min; Est GFR (Non-African American) 53.8 ml/min; Potassium 3.8 mmol/L (3.5-5.1)
--- NOTE | 2021-07-05 07:12 | Ultrasound Report ---
US venous doppler LE BI CLINICAL HISTORY: Bilateral leg swelling COMPARISON: None available at the time of this dictation. TECHNIQUE: Bilateral lower extremity real-time compression venous ultrasound with Color Doppler imagi ng. Utilizing real-time ultrasonic imaging multiple real time high-resolution ultrasonic images with comp ression and noncompression maneuvers of the deep venous system in addition to color doppler imaging w ere performed from the common femoral vein through the proximal calf veins. FINDINGS: On the right side, there is occlusive thrombus present within the superficial femoral, popliteal and posterior tibial veins. The common femoral vein is patent. There is edema within the right popliteal fossa and calf. On the left side, there is thrombus present within the posterior tibial vein. Edema is seen within th e calf. The proximal common femoral, superficial femoral and popliteal veins are patent. Impression: Positive for bilateral DVT, right greater than left. ACT 112: Negative or not required by law. Electronically signed by: Giles Mejia M.D. 07/05/2021 7:11 AM
[2021-07-05 07:18] LABS: Partial Thromboplastin Time 96.9 Seconds (21.0-31.0)
--- NOTE | 2021-07-05 08:30 | CT Scan Report ---
CT ANGIOGRAPHY OF THE CHEST, PULMONARY EMBOLUS PROTOCOL CLINICAL HISTORY: Shortness of breath, edema, PE COMPARISON STUDY: Chest radiograph performed earlier today. TECHNIQUE: Following IV administration of 115 mL of Optiray, helical axial images of the chest were o btained utilizing the pulmonary embolus protocol. Maximal intensity projections and sagittal and cor onal reformats were viewed on an independent 3D workstation. IV contrast was administered without co mplication. Automated exposure control was utilized for the study. A dose lowering technique was ut ilized adhering to the principles of ALARA. CT DOSE: 317.84 mGy.cm FINDINGS: Note is made of extensive bilateral pulmonary emboli, including emboli within the right an d left pulmonary arteries. There are occlusive emboli within right lower lobe pulmonary arteries. Add itional numerous segmental pulmonary emboli are noted. Dilatation of the right heart chambers is note d with straightening of the interventricular septum. There is cardiomegaly. No pericardial effusion i s present. No thoracic lymphadenopathy is present. Large hiatal hernia contains a portion of the stom ach and the transverse colon. There is no pneumothorax or pleural effusion. Left lower lobe opacity f avors atelectasis. Multifocal irregular bilateral upper lobe airspace opacities are present, includin g a 4 cm right apical opacity which accounts for the finding on chest radiograph performed earlier to day. Additional subpleural consolidation within the superior segment of the right lower lobe is noted . Central airways are patent. No acute fracture or suspicious lesion is identified within visualized portions of the bony thorax. There are calcified granulomas within liver and spleen. There is a 1.2 c m left hepatic lobe cyst. IMPRESSION: 1. Extensive bilateral pulmonary emboli with CT evidence for right heart strain. 2. Multifocal upper lobe predominant consolidation. This favors an infectious process such as viral p neumonia. 4 cm irregular right apical opacity which accounts for the finding on chest radiograph. Thi s is likely infectious given similar appearing findings within the left lung apex. However, an underl papa neoplasm cannot be excluded and therefore a follow-up chest CT in 3 months to ensure resolution is recommended. 3. Cardiomegaly. 4. Large hiatal hernia which contains a portion of the stomach and transverse colon. ACT 112: Negative or not required by law. Electronically signed by: Bj Crandall M.D. 07/05/2021 8:29 AM
[2021-07-05] MEDS: GABAPENTIN 300 MG CAP PO SCH ×3 (09:15→23:31)
[2021-07-05] MEDS: METOPROLOL SUCC 25MG EXT REL TAB PO SCH (09:16)
[2021-07-05] MEDS: DULoxetine HCL 20 MG CAP PO SCH (09:19)
--- NOTE | 2021-07-05 09:43 | Medical Student Progress Note ---
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 Bilateral pulmonary emboli with right heart strain Hemodynamically stable Likely secondary to bilateral LE DVTs, but unclear if PEs were provoked by sedentary activity, hypercoagulability, new lung cancer vs. metastasis PESI score of 110, indicating class IV PE, high risk: 4.0-11.4% 30-day mortality risk Workup as follows: * CTA chest shows extensive bilateral PEs with right heart strain, plus cardiomegaly; chronicity of PEs unknown * NT-proBNP elevated at 6952 without history of heart failure * Nasal swab for SARS-CoV-2, influenza A and B, and RSV negative by PCR * EKG shows NSR * TTE shows moderate to severe dilation of RV with RV systolic pressure elevated at 40-50 mmHg; normal LV function with mild LV hypertrophy * Troponin I negative * Pending hypercoagulability studies Management: * Continue heparin drip with monitoring of aPTT and platelet count * Titrate oxygen < 90% Bilateral DVTs Mixed etiology including age, obesity, decreased mobility due to progressive SOB vs. new lung cancer Workup as follows: * Venous Doppler positive for bilateral DVT, R > L * CTA chest as above * Pending hypercoagulability studies Management: * Continue heparin drip, as above Suspected cellulitis Suspicious for cellulitis due to venous stasis from bilateral DVTs vs. chronic venous insufficiency Workup as follows: * WBC count elevated at 14.7, decreased to 9.6 * eGFR of 53 and history of CKD stage 3a * Procalcitonin pending Management: * Continue cephalexin renally dosed -- end 07/12/21 Right + ?left upper lobe lung lesions Suspicious for cancer vs. pneumonia Workup as follows: * CXR and CTA chest show 4-cm R apical opacity, as well as similar opacity in the L apex * WBC count elevated to 14.7 on admission, decreased to 9.6 * Procalcitonin pending; if negative, will order BioFire respiratory panel to assess for common viral infection Management: * Repeat CTA in 3 months to assess for change in opacities * Can consider pulmonary consult if needed for biopsy Hypertension Management: * Continue home metoprolol Dispo: Med/Surg with telemetry Diet: Heart healthy DVT prophylaxis: Unfractionated heparin drip Code status: DNR/DNI (confirmed 07/04/21 by Kaz Church) Admission and Anticipated Discharge Date Admission Date: July 04, 2021 Supervising Attestation Patient seen and examined with PGY 2 Dr. Wolf and MS 2 Jun Patton. Agree with history, exam findings, assessment and plan of care as outlined. In brief, Ms. Ramos is AN 80-year-old female with history of hypertension, hyperlipidemia, melanoma and hereditary neuropathy admitted with 6 months of worsening dyspnea, specifically worsening in the last week found to have bilateral pulmonary embolisms and bilateral DVTs. Today, she feels that her breathing is a little bit better and also feels that her chest pain that she was previously describing is pleuritic is improved. She also reports that she has had some pain and swelling in the legs. She has noticed some fluctuating erythema near the ankles. She reports that the area that gets erythematous tends to be tender to the touch and sensitive with the sheets. Denies fevers or chills. Vital signs and nursing notes reviewed. Nontoxic-appearing. Heart with regular rate and rhythm. No murmur. No JVD. Lungs are clear to auscultation in all lung parks. No wheezing or rhonchi. No crackles. Bilateral lower extremities with +2 edema to the knees. There is ill-defined erythema over the anterior right ankle that is circumferential to the heel. The erythematous area is tender and warm to the touch. This area was marked with a pen today. Labs and imaging reviewed. 1. Bilateral pulmonary emboli, bilateral DVTs. Likely to be provoked given the negative pro calcitonin. There is a bio fire pending to rule out a viral etiology that may be obscuring a underlying malignancy in the lung. TTE shows moderate to severe right ventricular dilation with elevated right ventricular systolic pressures. Hypercoagulability panel is pending. Continue with heparin drip. Continue with supplemental oxygen with attempts to wean daily. 2. Right lower leg cellulitis. May be secondary to venous stasis but the skin in the area is cracked and tender. Started cephalexin today. 3. Lung mass. Suspect that the consolidation seen on the chest x-ray may be secondary to a mass given her lack of viral and bacterial pneumonia symptoms other than her dyspnea and cough. Regardless, she will need a repeat CT of the chest in 3 months. May need pulmonary consult as an outpatient to help with determining the best route for tissue diagnosis if there continues to be a mass or consolidation in the area. Dispo: pending clinical improvement. Subjective No acute events overnight. Patient is eating and drinking and reports she has walked to the restroom with a nurse nearby for help; significant dyspnea on exertion with this. She continues to feel fatigued and has a dry cough exacerbated with deep breaths. She reports rash of right medial ankle, which is painful, red, swollen, and very sensitive to touch. Review of Systems Review of Systems: as per HPI / Subjective Physical Exam Constitutional: + ill appearing; no acute distress Eyes: EOM intact bilaterally Neck: trachea midline, no thyromegaly Thyroid: no thyromegaly Respiratory: + cough Auscultation: lungs clear to auscultation bilaterally Cardiovascular: Rate/Rhythm: regular rate and regular rhythm Heart Sounds: no murmur Vessels: no JVD Extremities: + calf tenderness (b/l worse on R than L) and + edema (3+ b/l to the knee) Gastrointestinal (Abdomen): Inspection/Auscultation: abdomen not distended Percussion/Palpation: abdomen soft; abdomen nontender and no ascites Skin: + rash (warmth and redness of the medial R ankle) Neurologic: moves all extremities Speech / Cognition: + abnormal speech (mild tremor) Psychiatric: A+Ox3, euthymic affect Lymphatic: no cervical lymphadenopathy Results & Data ([facility]) Vital Signs (Past 12 Hours) Vital Signs Pulse Resp BP Pulse Ox Pulse Ox 07/05/21 07:43 88 16 112/68 98 07/05/21 06:00 87 18 113/53 L 99 07/05/21 01:17 88 16 123/73 97 97 07/04/21 22:16 88 20 105/76 98
--- NOTE | 2021-07-05 10:29 | Electrocardiogram Report ---
Test Reason : Blood Pressure : / mmHG Vent. Rate : 086 BPM Atrial Rate : 086 BPM P-R Int : 134 ms QRS Dur : 066 ms QT Int : 360 ms P-R-T Axes : 081 -10 027 degrees QTc Int : 430 ms Poor data quality, interpretation may be adversely affected Normal sinus rhythm Low voltage QRS Cannot rule out Anterior infarct , age undetermined Abnormal ECG No previous ECGs available Confirmed by Aly Sadler ([id number]) on 07/05/2021 10:28:38 AM Referred By: REFERRED SELF Confirmed By:Kevin Sadler
--- NOTE | 2021-07-05 10:48 | XCELERA ---
[id number]
[2021-07-05] MEDS: cephALEXin 250 MG CAP PO SCH ×3 (13:00→20:47)
[2021-07-05 15:18] LABS: Partial Thromboplastin Ratio 1.9
[2021-07-05 15:36] LABS: Partial Thromboplastin Time 50.1 Seconds (21.0-31.0)
[2021-07-05] MEDS ORDERED: CHLORASEPTIC 1.4% SOLN 180 ML BTL MT PRN (20:32)
[2021-07-05 20:38] LABS: Partial Thromboplastin Time 26.4 Seconds (21.0-31.0)
[2021-07-05] MEDS ORDERED: HEPARIN IV BOLUS 6,000 UNITS in SYRINGE 0 ML IV ONE (21:45)
[2021-07-06] MEDS ORDERED: Nursing to Pharmacy Communication SCH
[2021-07-06 04:03] LABS: Basophils # (auto) 0.02 K/uL (0-0.2); Basophils % (auto) 0.2 %; Eosinophils # (auto) 0.14 K/uL (0-0.5); Eosinophils % (auto) 1.5 %; Hematocrit (blood only) 37.1 % (37-47); Hemoglobin 12.4 g/dL (12.0-16.0); Immature Granulocytes # (auto) 0.03 K/uL (0.00-0.02); Immature Granulocytes % (auto) 0.3 %; Lymphocytes # (auto) 1.51 K/uL (1.2-3.4); Lymphocytes % (auto) 16.3 %; Mean Corpuscular Hemoglobin 30.5 pg (25-34); Mean Corpuscular Hgb Conc 33.4 g/dL (32-36); Mean Corpuscular Volume 91.2 fL (80-100); Mean Platelet Volume 10.5 fL (7.4-10.4); Monocytes % (auto) 6.5 %; Neutrophils # (auto) 6.94 K/uL (1.4-6.5); Neutrophils % (auto) 75.2 %; Platelet Count 236 K/uL (130-400); RDW Coefficient of Variation 15.3 % (11.5-14.5); RDW Standard Deviation 50.5 fL (36.4-46.3); Red Blood Count 4.07 M/uL (4.2-5.4); White Blood Count 9.24 K/uL (4.8-10.8)
[2021-07-06 04:18] LABS: Albumin Level 2.4 gm/dl (3.4-5.0); BUN Creatinine Ratio 17.9 (10-20); Calcium 8.8 mg/dl (8.5-10.1); Creatinine Clr Calc Pharmacy 48.3 ml/min; Est GFR (African American) 60.2 ml/min; Est GFR (Non-African American) 51.9 ml/min; Potassium 3.9 mmol/L (3.5-5.1)
[2021-07-06 04:20] LABS: Albumin Globulin Ratio 0.6 (0.9-2); Bilirubin,Total 0.6 mg/dl (0.2-1); Globulin 3.9 gm/dl (2.5-4.0); Partial Thromboplastin Ratio > 5.3; Total Protein 6.3 gm/dl (6.4-8.2)
[2021-07-06 04:33] LABS: Partial Thromboplastin Time > 139.0 Seconds (21.0-31.0)
[2021-07-06 07:00] LABS: Partial Thromboplastin Ratio 2.1
[2021-07-06 07:01] LABS: Partial Thromboplastin Time 55.2 Seconds (21.0-31.0)
[2021-07-06] MEDS: GABAPENTIN 300 MG CAP PO SCH ×2 (08:37→20:42)
[2021-07-06] MEDS: cephALEXin 250 MG CAP PO SCH ×4 (08:37→20:42)
[2021-07-06] MEDS: METOPROLOL SUCC 25MG EXT REL TAB PO SCH (08:37)
[2021-07-06] MEDS: DULoxetine HCL 20 MG CAP PO SCH (08:37)
[2021-07-06] MEDS ORDERED: SODIUM CHLORIDE 0.65% NA SOLN 45 ML (OCEAN) ONE (09:01)
[2021-07-06 09:04] LABS: Adenovirus PCR Not Detected (NotDetected); Bordetella parapertussis PCR Not Detected (NotDetected); Bordetella pertussis PCR Not Detected (NotDetected); Chlamydia pneumoniae PCR Not Detected (NotDetected); Coronavirus 229E PCR Not Detected (NotDetected); Coronavirus CoV-2 (COVID19)PCR Not Detected (NotDetected); Coronavirus HKU1 PCR Not Detected (NotDetected); Coronavirus NL63 PCR Not Detected (NotDetected); Coronavirus OC43PCR Not Detected (NotDetected); Human Metapneumovirus PCR Not Detected (NotDetected); Influenza A PCR Not Detected (NotDetected); Influenza B PCR Not Detected (NotDetected); Mycoplasma pneumoniae PCR Not Detected (NotDetected); Parainfluenza Virus 1 PCR Not Detected (NotDetected); Parainfluenza Virus 2 PCR Not Detected (NotDetected); Parainfluenza Virus 3 PCR Not Detected (NotDetected); Parainfluenza Virus 4 PCR Not Detected (NotDetected); Respiratory Syncytial VirusPCR Not Detected (NotDetected); Rhinovirus/Enterovirus PCR Not Detected (NotDetected)
--- NOTE | 2021-07-06 12:27 | Electrocardiogram Report ---
Test Reason : Blood Pressure : / mmHG Vent. Rate : 082 BPM Atrial Rate : 035 BPM P-R Int : 000 ms QRS Dur : 076 ms QT Int : 390 ms P-R-T Axes : 000 -06 013 degrees QTc Int : 455 ms Poor data quality, interpretation may be adversely affected Normal sinus rhythm Cannot rule out Anterior infarct (cited on or before 04-JUL-2021) Abnormal ECG When compared with ECG of 04-JUL-2021 18:33, No significant change Confirmed by Richard Gilmore ([id number]) on 07/06/2021 12:27:24 PM Referred By: REFERRED SELF Confirmed By:Richard Gilmore
[2021-07-06 15:39] LABS: Partial Thromboplastin Ratio 1.4; Partial Thromboplastin Time 35.6 Seconds (21.0-31.0)
[2021-07-06] MEDS ORDERED: HEPARIN SOD (PORCINE) 1000 UNIT/ML IV ONE (16:00)
--- NOTE | 2021-07-06 18:37 | Hospitalist Progress Note ---
Date of Service July 06, 2021 Assessment & Plan (1) Bilateral pulmonary embolism: Plan: Patient is a pleasant 80 year old female with PMHx HTN, HLD, CKD stage 3a, Varicose Veins, Melanoma, who presents with chief complaint of 6 month history of worsening SOB with exertion, acutely worsened 1 week ago when she was unable to catch her breath after a "panic attack," found to have large bilateral pulmonary emboli with right heart strain in addition to a masslike consolidation lesion in the right upper lung field. Bilateral PE - Patient has been hemodynamically stable. - CTA chest 07/05 shows extensive bilateral PEs with right heart strain, plus cardiomegaly; chronicity of PEs unknown - PESI score 130, class V with very high risk 10-24.5% 30 day mortality - Hypercoagulable panel drawn, pending - NT-proBNP elevated at 6952 without history of heart failure - Nasal swab for SARS-CoV-2, influenza A and B, and RSV negative by PCR - EKG w/ NSR - TTE shows moderate to severe dilation of RV with RV systolic pressure elevated at 40-50 mmHg; normal LV function with mild LV hypertrophy - Troponin I negative - Continue heparin drip with monitoring of aPTT and platelet count - Continue to wean supplemental O2; patient is not on supplemental O2 at baseline - PT/OT ordered -- PT recommending STR placement once medically stable (patient does live at home alone and is typically independents with ADLs but currently below her functional baseline) Bilateral DVTs - Venous doppler positive for bilateral DVT, R>L - Hypercoagulability studies as above - Continue heparin as above Suspected cellulitis - Suspicious for cellulitis due to venous stasis from bilateral DVTs vs. chronic venous insufficiency - Leukocytosis on admission at 14.7, now resolved - Continue cephalexin, renally dosed -- end 07/12/21 Right + ?left upper lobe lung lesions - Suspicious for cancer vs. pneumonia -- no prior hx of tobacco use; prior hx of melanoma at age 29, no othe rcancer hx - CXR and CTA chest show 4-cm R apical opacity, as well as similar opacity in the L apex - Plan to repeat CTA in 3 months to assess for change in opacities - Can consider pulmonary consult if needed for biopsy Chronic Problems Hypertension: Continue home metoprolol Dispo: Med/Surg Telemetry FEN: HH diet DVT: Heparin gtt Code: DNR/DNI (2) Mass of right lung: Admission and Anticipated Discharge Date Admission Date: July 04, 2021 Supervising Physician Co-Signing Physician Notes Patient seen and examined with PGY 2 Dr. Jackson. Agree with history, exam findings, assessment and plan of care as outlined. In brief, Ms. Ramos is AN 80-year-old female with history of hypertension, hyperlipidemia, melanoma and hereditary neuropathy admitted with 6 months of worsening dyspnea, specifically worsening in the last week found to have bilateral pulmonary embolisms and bilateral DVTs. Today, she feels that her breathing is a little bit better. She is still getting a bit dyspneic with exertion. Vital signs and nursing notes reviewed. Nontoxic-appearing. Bilateral lower extremities with +2 edema to the knee on the right. There is ill-defined erythema over the anterior right ankle that is circumferential to the heel. The erythematous area is tender and warm to the touch. This area was marked with a pen today. Labs and imaging reviewed. 1. Bilateral pulmonary emboli, bilateral DVTs. Negative procal and biofire. Suspect that the consolidation on the CT may in fact be a mass (see below for details). TTE shows moderate to severe right ventricular dilation with elevated right ventricular systolic pressures. Hypercoagulability panel is pending. Continue with heparin drip. Continue with supplemental oxygen with attempts to wean daily. 2. Right lower leg cellulitis. May be secondary to venous stasis but the skin in the area is cracked and tender. Continue Keflex. 3. Lung mass. Suspect that the consolidation seen on the chest x-ray may be secondary to a mass given her lack of viral and bacterial pneumonia symptoms other than her dyspnea and cough. Regardless, she will need a repeat CT of the chest in 3 months. May need pulmonary consult as an outpatient to help with determining the best route for tissue diagnosis if there continues to be a mass or consolidation in the area. Dispo: pending clinical improvement. Subjective Patient seen and evaluated at bedside. No acute events overnight. Notes that supplemental oxygen requirement has decreased from 4L to 3L; has had some HENLEY but overall improved from initial HENLEY on admission. Is eating and drinking well w/o abdominal pain, nausea, or vomiting. Continues to feel fatigued. No other complaints or concerns at this time. Review of Systems Review of Systems: See HPI Physical Exam Physical Exam: GENERAL: No acute distress. Sitting in chair at bedside. Well developed and well nourished. EYES: EOMI. Anicteric sclerae. HENT: Moist mucous membranes. NC in place w/ 3L supplemental O2. RESPIRATORY: Decreased breath sounds bilaterally w/ poor air movement but clear to auscultation bilaterally. No wheezing, rales, or rhonchi. CARDIOVASCULAR: Regular rate and rhythm. ABDOMEN: Soft, non-tender and non-distended. Normal bowel sounds. EXTREMITIES: 2+ RLE. Erythema slightly improved from borders drawn on skin yesterday. SKIN: Warm. Some serosanguineous fluid from right medial lower leg. NEUROLOGIC: A/O x3. No focal neurological deficits. PSYCHIATRIC: Cooperative. Appropriate mood and affect. Results & Data Results & Data ([facility]) Vital Signs (Past 12 Hours) Vital Signs Temp Pulse Pulse Resp BP Pulse Ox 07/06/21 18:09 94 07/06/21 16:33 97 07/06/21 15:00 36.5 C 84 18 125/81 94 07/06/21 14:19 81 07/06/21 12:29 96 07/06/21 11:35 97 07/06/21 11:00 36.3 C L 88 18 122/82 98 07/06/21 08:36 101 H 106/72 07/06/21 06:36 84 20 113/72 98 Laboratory Results 07/06/21 07/06/21 07/06/21 Range/Units 14:57 07:50 06:16 WBC (4.8-10.8) K/uL RBC (4.2-5.4) M/uL Hgb (12.0-16.0) g/dL Hct (37-47) % MCV (80-100) fL MCH (25-34) pg MCHC (32-36) g/dL RDW Std Deviation (36.4-46.3) fL RDW Coeff of Aurelio (11.5-14.5) % Plt Count (130-400) K/uL MPV (7.4-10.4) fL Immature Gran % (Auto) % Neut % (Auto) % Lymph % (Auto) % [place] % (Auto) % Eos % (Auto) % Baso % (Auto) % Neut # (Auto) (1.4-6.5) K/uL Lymph # (Auto) (1.2-3.4) K/uL [place] # (Auto) (0.11-0.59) K/uL Eos # (Auto) (0-0.5) K/uL Baso # (Auto) (0-0.2) K/uL Immature Gran # (Auto) (0.00-0.02) K/uL APTT 35.6 H 55.2 H* (21.0-31.0) Seconds PTT Ratio 1.4 2.1 Sodium (136-145) mmol/L Potassium (3.5-5.1) mmol/L Chloride (98-107) mmol/L Carbon Dioxide (21-32) mmol/L Anion Gap (3-11) BUN (7-18) mg/dl Creatinine (0.6-1.2) mg/dl Est Cr Clr Drug Dosing ml/min Est GFR ( Amer) ml/min Est GFR (Non-Af Amer) ml/min BUN/Creatinine Ratio (10-20) Glucose (70-99) mg/dl Calcium (8.5-10.1) mg/dl Total Bilirubin (0.2-1) mg/dl AST (15-37) U/L ALT (12-78) Alkaline Phosphatase (45-117) U/L Total Protein (6.4-8.2) gm/dl Albumin (3.4-5.0) gm/dl Globulin (2.5-4.0) gm/dl Albumin/Globulin Ratio (0.9-2) Homocysteine (<10.4) umol/L Adenovirus (PCR) Not Detected (NotDetected) B. pertussis DNA (PCR) Not Detected (NotDetected) B.parapertussis DNA PCR Not Detected (NotDetected) C. pneumoniae DNA (PCR) Not Detected (NotDetected) Coronavirus OC43 (PCR) Not Detected (NotDetected) Coronavirus HKU1 (PCR) Not Detected (NotDetected) Coronavirus 229E (PCR) Not Detected (NotDetected) SARS-CoV-2 (PCR) Not Detected (NotDetected) Coronavirus NL63 (PCR) Not Detected (NotDetected) Human Metapneumovir PCR Not Detected (NotDetected) Influenza Type A (PCR) Not Detected (NotDetected) Influenza Type B (PCR) Not Detected (NotDetected) M. pneumoniae (PCR) Not Detected (NotDetected) Parainfluenza 1 (PCR) Not Detected (NotDetected) Parainfluenza 2 (PCR) Not Detected (NotDetected) Parainfluenza 3 (PCR) Not Detected (NotDetected) Parainfluenza 4 (PCR) Not Detected (NotDetected) RSV (PCR) Not Detected (NotDetected) Entero/Rhino (PCR) Not Detected (NotDetected) 07/06/21 07/06/21 07/06/21 Range/Units 03:50 03:50 03:50 WBC 9.24 (4.8-10.8) K/uL RBC 4.07 L (4.2-5.4) M/uL Hgb 12.4 (12.0-16.0) g/dL Hct 37.1 (37-47) % MCV 91.2 (80-100) fL MCH 30.5 (25-34) pg MCHC 33.4 (32-36) g/dL RDW Std Deviation 50.5 H (36.4-46.3) fL RDW Coeff of Aurelio 15.3 H (11.5-14.5) % Plt Count 236 (130-400) K/uL MPV 10.5 H (7.4-10.4) fL Immature Gran % (Auto) 0.3 % Neut % (Auto) 75.2 % Lymph % (Auto) 16.3 % [place] % (Auto) 6.5 % Eos % (Auto) 1.5 % Baso % (Auto) 0.2 % Neut # (Auto) 6.94 H (1.4-6.5) K/uL Lymph # (Auto) 1.51 (1.2-3.4) K/uL [place] # (Auto) 0.60 H (0.11-0.59) K/uL Eos # (Auto) 0.14 (0-0.5) K/uL Baso # (Auto) 0.02 (0-0.2) K/uL Immature Gran # (Auto) 0.03 H (0.00-0.02) K/uL APTT > 139.0 H* (21.0-31.0) Seconds PTT Ratio > 5.3 Sodium 138 (136-145) mmol/L Potassium 3.9 (3.5-5.1) mmol/L Chloride 108 H (98-107) mmol/L Carbon Dioxide 25 (21-32) mmol/L Anion Gap 5.0 (3-11) BUN 18 (7-18) mg/dl Creatinine 1.02 (0.6-1.2) mg/dl Est Cr Clr Drug Dosing 48.3 ml/min Est GFR ( Amer) 60.2 ml/min Est GFR (Non-Af Amer) 51.9 ml/min BUN/Creatinine Ratio 17.9 (10-20) Glucose 106 H (70-99) mg/dl Calcium 8.8 (8.5-10.1) mg/dl Total Bilirubin 0.6 D (0.2-1) mg/dl AST 27 (15-37) U/L ALT 40 (12-78) Alkaline Phosphatase 85 (45-117) U/L Total Protein 6.3 L (6.4-8.2) gm/dl Albumin 2.4 L (3.4-5.0) gm/dl Globulin 3.9 (2.5-4.0) gm/dl Albumin/Globulin Ratio 0.6 L (0.9-2) Homocysteine (<10.4) umol/L Adenovirus (PCR) (NotDetected) B. pertussis DNA (PCR) (NotDetected) B.parapertussis DNA PCR (NotDetected) C. pneumoniae DNA (PCR) (NotDetected) Coronavirus OC43 (PCR) (NotDetected) Coronavirus HKU1 (PCR) (NotDetected) Coronavirus 229E (PCR) (NotDetected) SARS-CoV-2 (PCR) (NotDetected) Coronavirus NL63 (PCR) (NotDetected) Human Metapneumovir PCR (NotDetected) Influenza Type A (PCR) (NotDetected) Influenza Type B (PCR) (NotDetected) M. pneumoniae (PCR) (NotDetected) Parainfluenza 1 (PCR) (NotDetected) Parainfluenza 2 (PCR) (NotDetected) Parainfluenza 3 (PCR) (NotDetected) Parainfluenza 4 (PCR) (NotDetected) RSV (PCR) (NotDetected) Entero/Rhino (PCR) (NotDetected) 07/05/21 07/04/21 Range/Units 20:04 23:13 WBC (4.8-10.8) K/uL RBC (4.2-5.4) M/uL Hgb (12.0-16.0) g/dL Hct (37-47) % MCV (80-100) fL MCH (25-34) pg MCHC (32-36) g/dL RDW Std Deviation (36.4-46.3) fL RDW Coeff of Aurelio (11.5-14.5) % Plt Count (130-400) K/uL MPV (7.4-10.4) fL Immature Gran % (Auto) % Neut % (Auto) % Lymph % (Auto) % [place] % (Auto) % Eos % (Auto) % Baso % (Auto) % Neut # (Auto) (1.4-6.5) K/uL Lymph # (Auto) (1.2-3.4) K/uL [place] # (Auto) (0.11-0.59) K/uL Eos # (Auto) (0-0.5) K/uL Baso # (Auto) (0-0.2) K/uL Immature Gran # (Auto) (0.00-0.02) K/uL APTT 26.4 (21.0-31.0) Seconds PTT Ratio 1.0 Sodium (136-145) mmol/L Potassium (3.5-5.1) mmol/L Chloride (98-107) mmol/L Carbon Dioxide (21-32) mmol/L Anion Gap (3-11) BUN (7-18) mg/dl Creatinine (0.6-1.2) mg/dl Est Cr Clr Drug Dosing ml/min Est GFR ( Amer) ml/min Est GFR (Non-Af Amer) ml/min BUN/Creatinine Ratio (10-20) Glucose (70-99) mg/dl Calcium (8.5-10.1) mg/dl Total Bilirubin (0.2-1) mg/dl AST (15-37) U/L ALT (12-78) Alkaline Phosphatase (45-117) U/L Total Protein (6.4-8.2) gm/dl Albumin (3.4-5.0) gm/dl Globulin (2.5-4.0) gm/dl Albumin/Globulin Ratio (0.9-2) Homocysteine 15.6 H (<10.4) umol/L Adenovirus (PCR) (NotDetected) B. pertussis DNA (PCR) (NotDetected) B.parapertussis DNA PCR (NotDetected) C. pneumoniae DNA (PCR) (NotDetected) Coronavirus OC43 (PCR) (NotDetected) Coronavirus HKU1 (PCR) (NotDetected) Coronavirus 229E (PCR) (NotDetected) SARS-CoV-2 (PCR) (NotDetected) Coronavirus NL63 (PCR) (NotDetected) Human Metapneumovir PCR (NotDetected) Influenza Type A (PCR) (NotDetected) Influenza Type B (PCR) (NotDetected) M. pneumoniae (PCR) (NotDetected) Parainfluenza 1 (PCR) (NotDetected) Parainfluenza 2 (PCR) (NotDetected) Parainfluenza 3 (PCR) (NotDetected) Parainfluenza 4 (PCR) (NotDetected) RSV (PCR) (NotDetected) Entero/Rhino (PCR) (NotDetected) Resident Activity Tracking Resident Involvement: Resident Care Provided Care Provided: Adult Hospital Medicine
[2021-07-06] MEDS: HEPARIN SODIUM/DEXTROSE 25,000 UNITS/500 ML BAG IV SCH (22:38)
[2021-07-06 23:31] LABS: Partial Thromboplastin Ratio 2.7
[2021-07-07 00:03] LABS: Partial Thromboplastin Time 71.6 Seconds (21.0-31.0)
[2021-07-07 06:45] LABS: Basophils # (auto) 0.02 K/uL (0-0.2); Basophils % (auto) 0.3 %; Eosinophils # (auto) 0.14 K/uL (0-0.5); Eosinophils % (auto) 1.8 %; Hematocrit (blood only) 37.8 % (37-47); Hemoglobin 12.3 g/dL (12.0-16.0); Immature Granulocytes # (auto) 0.04 K/uL (0.00-0.02); Immature Granulocytes % (auto) 0.5 %; Lymphocytes # (auto) 1.46 K/uL (1.2-3.4); Lymphocytes % (auto) 18.3 %; Mean Corpuscular Hemoglobin 29.9 pg (25-34); Mean Corpuscular Hgb Conc 32.5 g/dL (32-36); Mean Platelet Volume 10.6 fL (7.4-10.4); Monocytes # (auto) 0.49 K/uL (0.11-0.59); Monocytes % (auto) 6.1 %; Neutrophils # (auto) 5.82 K/uL (1.4-6.5); Platelet Count 278 K/uL (130-400); RDW Coefficient of Variation 15.7 % (11.5-14.5); RDW Standard Deviation 52.1 fL (36.4-46.3); Red Blood Count 4.11 M/uL (4.2-5.4); White Blood Count 7.97 K/uL (4.8-10.8)
[2021-07-07 07:04] LABS: Partial Thromboplastin Ratio 2.3
[2021-07-07 07:17] LABS: Est GFR (African American) 72.9 ml/min; Potassium 4.1 mmol/L (3.5-5.1)
[2021-07-07 07:18] LABS: BUN Creatinine Ratio 14.4 (10-20); Calcium 9.2 mg/dl (8.5-10.1); Creatinine Clr Calc Pharmacy 56.5 ml/min; Est GFR (Non-African American) 62.9 ml/min
[2021-07-07 07:31] LABS: Partial Thromboplastin Time 61.2 Seconds (21.0-31.0)
[2021-07-07] MEDS: GABAPENTIN 300 MG CAP PO SCH ×2 (07:42→19:58)
[2021-07-07] MEDS: DULoxetine HCL 20 MG CAP PO SCH (07:42)
[2021-07-07] MEDS: METOPROLOL SUCC 25MG EXT REL TAB PO SCH (07:42)
[2021-07-07] MEDS: cephALEXin 250 MG CAP PO SCH ×4 (07:42→19:58)
[2021-07-07 09:11] LABS: Magnesium 2.2 mg/dl (1.8-2.4); Phosphorus 3.1 mg/dl (2.5-4.9)
--- NOTE | 2021-07-07 11:27 | XRay Report ---
XR chest 2V PA/lateral CLINICAL HISTORY: Shortness of breath. COMPARISON STUDY: Chest radiograph and chest CT July 04, 2021. FINDINGS: Large hiatal hernia is again noted. There is no pneumothorax or pleural effusion. Biapical nodular opacities are again noted. Left lower lobe airspace opacity favors atelectasis. Cardiomegaly is noted without evidence for pulmonary edema. IMPRESSION: 1. Redemonstration of nodular biapical opacities. These favor an infectious process however radiograp hic follow-up is recommended to ensure resolution and exclude the possibility of a neoplastic process . 2. Large hiatal hernia. 3. Cardiomegaly. No evidence for pulmonary edema. ACT 112: Negative or not required by law. Electronically signed by: Bj Crandall M.D. 07/07/2021 11:25 AM
--- NOTE | 2021-07-07 13:08 | Electrocardiogram Report ---
Test Reason : Blood Pressure : / mmHG Vent. Rate : 074 BPM Atrial Rate : 074 BPM P-R Int : 154 ms QRS Dur : 074 ms QT Int : 396 ms P-R-T Axes : 004 -04 004 degrees QTc Int : 439 ms Normal sinus rhythm Cannot rule out Anterior infarct (cited on or before 04-JUL-2021) Abnormal ECG When compared with ECG of 06-JUL-2021 06:13, Serial changes of Anterior infarct Present Confirmed by Richard Gilmore ([id number]) on 07/07/2021 1:08:24 PM Referred By: REFERRED SELF Confirmed By:Richard Gilmore
[2021-07-07] MEDS ORDERED: ACYCLOVIR 5% OINT 15 GM TUBE EXT PRN (17:22)
[2021-07-07] MEDS ORDERED: FUROSEMIDE 20 MG TAB PO ONE (17:23)
--- NOTE | 2021-07-07 18:03 | Hospitalist Progress Note ---
Date of Service July 07, 2021 Assessment & Plan (1) Bilateral pulmonary embolism: Plan: Patient is a pleasant 80 year old female with PMHx HTN, HLD, CKD stage 3a, Varicose Veins, Melanoma, who presents with chief complaint of 6 month history of worsening SOB with exertion, acutely worsened 1 week ago when she was unable to catch her breath after a "panic attack," found to have large bilateral pulmonary emboli with right heart strain in addition to a masslike consolidation lesion in the right upper lung field. Bilateral PE w/ right heart strain - Patient has been hemodynamically stable. - CTA chest 07/05 shows extensive bilateral PEs with right heart strain, plus cardiomegaly; chronicity of PEs unknown - On admission, PESI score 130, class V with very high risk 10-24.5% 30 day mortality - Hypercoagulable panel drawn, pending - NT-proBNP elevated at 6952 without history of heart failure - Nasal swab for SARS-CoV-2, influenza A and B, and RSV negative by PCR - EKG w/ NSR - TTE shows moderate to severe dilation of RV with RV systolic pressure elevated at 40-50 mmHg; normal LV function with mild LV hypertrophy - Troponin I negative - Continue heparin drip with monitoring of aPTT and platelet count - Continue to wean supplemental O2; patient is not on supplemental O2 at baseline - PT/OT ordered -- PT recommending STR placement once medically stable (patient does live at home alone and is typically independents with ADLs but currently below her functional baseline) - CXR 07/07: Nodular biapical opacities re-demonstrated. Large hiatal hernia. Cardiomegaly. No evidence of pulmonary edema. - Lasix 10mg po administered today. Can consider cardiology consult. Bilateral DVTs - Venous doppler positive for bilateral DVT, R>L - Hypercoagulability studies as above - Continue heparin as above Suspected cellulitis - Suspicious for cellulitis due to venous stasis from bilateral DVTs vs. chronic venous insufficiency - Leukocytosis on admission at 14.7, now resolved - Continue cephalexin, renally dosed -- end 07/12/21 Right + ?left upper lobe lung lesions - Suspicious for cancer vs. pneumonia -- no prior hx of tobacco use; prior hx of melanoma at age 29, no othe rcancer hx - CXR and CTA chest show 4-cm R apical opacity, as well as similar opacity in the L apex - Plan to repeat CTA in 3 months to assess for change in opacities - Can consider pulmonary consult if needed for biopsy Chronic Problems Hypertension: Continue home metoprolol Dispo: Med/Surg Telemetry FEN: HH diet DVT: Heparin gtt Code: DNR/DNI (2) Mass of right lung: Admission and Anticipated Discharge Date Admission Date: July 04, 2021 Supervising Physician Co-Signing Physician Notes Patient seen and examined with PGY 2 Dr. Jackson. Agree with history, exam findings, assessment and plan of care as outlined. In brief, Ms. Ramos is AN 80-year-old female with history of hypertension, hyperlipidemia, melanoma and hereditary neuropathy admitted with 6 months of worsening dyspnea, specifically worsening in the last week found to have bilateral pulmonary embolisms and bilateral DVTs. Today, she feels that her breathing is a little bit better. She is still getting a bit dyspneic with exertion. Vital signs and nursing notes reviewed. Nontoxic-appearing. Heart with regular rate and rhythm. Breathing comfortably on 2L NC. Crackles at the bilateral bases. Bilateral lower extremities with +2 edema to the knee on the right. There is ill-defined erythema over the anterior right ankle that is circumferential to the heel. The erythematous area is tender and warm to the touch that is within the marked pen border. 1. Bilateral pulmonary emboli, bilateral DVTs. Negative procal and biofire. Suspect that the consolidation on the CT may in fact be a mass (see below for details). TTE shows moderate to severe right ventricular dilation with elevated right ventricular systolic pressures. Hypercoagulability panel is pending. Continue with heparin drip. Continue with supplemental oxygen with attempts to wean daily. 2. Right lower leg cellulitis. May be secondary to venous stasis but the skin in the area is cracked and tender. Continue Keflex. 3. LLE edema and bibasilar crackles. CXR with significant cephalization, effusions or pulmonary edema. Will give a small dose of lasix today to help with some of her lower extremity edema. Monitor I/O's. 4. Lung mass. Suspect that the consolidation seen on the chest x-ray may be secondary to a mass given her lack of viral and bacterial pneumonia symptoms other than her dyspnea and cough. Regardless, she will need a repeat CT of the chest in 3 months. May need pulmonary consult as an outpatient to help with determining the best route for tissue diagnosis if there continues to be a mass or consolidation in the area. Dispo: pending clinical improvement; PT/OT recommending SNF. Subjective Patient seen and evaluated at bedside. Noted to have a 10 beat run of Vtach (between rate of 100-135) at 1258 overnight. Patient then remained hemodynamically stable w/o any other arrhythmias on telemetry. Otherwise, no acute events overnight. Notes that supplemental oxygen requirement has decreased further to 2L. Patient w/o complaint of persistent HENLEY or SOB at this time. Is eating and drinking well w/o abdominal pain, nausea, or vomiting. No other complaints or concerns at this time. Review of Systems Review of Systems: See HPI Physical Exam Physical Exam: GENERAL: No acute distress. Well developed and well nourished. EYES: EOMI. Anicteric sclerae. HENT: Moist mucous membranes. NC in place w/ 2L supplemental O2. RESPIRATORY: Decreased breath sounds bilaterally w/ poor air movement. Crackles in bilateral lower lung parks. No wheezing. CARDIOVASCULAR: Regular rate and rhythm. ABDOMEN: Soft, non-tender and non-distended. Normal bowel sounds. EXTREMITIES: 2+ RLE edema. 1+ LLE edema. SKIN: Warm. Some serosanguineous fluid from right medial lower leg. NEUROLOGIC: A/O x3. No focal neurological deficits. PSYCHIATRIC: Cooperative. Appropriate mood and affect. Results & Data Results & Data ([facility]) Vital Signs (Past 12 Hours) Vital Signs Temp Pulse Pulse Resp BP BP Pulse Ox 07/07/21 15:03 36.4 C L 79 18 118/74 96 07/07/21 14:57 79 07/07/21 11:51 92 H 104/66 120/73 07/07/21 11:00 36.4 C L 80 18 88/56 L 98 07/07/21 07:40 36.3 C L 76 22 91/62 L 97 07/07/21 07:16 78 Laboratory Results 07/07/21 07/07/21 07/07/21 Range/Units 06:23 06:23 06:23 WBC (4.8-10.8) K/uL RBC (4.2-5.4) M/uL Hgb (12.0-16.0) g/dL Hct (37-47) % MCV (80-100) fL MCH (25-34) pg MCHC (32-36) g/dL RDW Std Deviation (36.4-46.3) fL RDW Coeff of Aurelio (11.5-14.5) % Plt Count (130-400) K/uL MPV (7.4-10.4) fL Immature Gran % (Auto) % Neut % (Auto) % Lymph % (Auto) % [place] % (Auto) % Eos % (Auto) % Baso % (Auto) % Neut # (Auto) (1.4-6.5) K/uL Lymph # (Auto) (1.2-3.4) K/uL [place] # (Auto) (0.11-0.59) K/uL Eos # (Auto) (0-0.5) K/uL Baso # (Auto) (0-0.2) K/uL Immature Gran # (Auto) (0.00-0.02) K/uL APTT 61.2 H* (21.0-31.0) Seconds PTT Ratio 2.3 Sodium 138 (136-145) mmol/L Potassium 4.1 (3.5-5.1) mmol/L Chloride 107 (98-107) mmol/L Carbon Dioxide 28 (21-32) mmol/L Anion Gap 3.0 (3-11) BUN 13 (7-18) mg/dl Creatinine 0.87 (0.6-1.2) mg/dl Est Cr Clr Drug Dosing 56.5 ml/min Est GFR ( Amer) 72.9 ml/min Est GFR (Non-Af Amer) 62.9 ml/min BUN/Creatinine Ratio 14.4 (10-20) Glucose 106 H (70-99) mg/dl Calcium 9.2 (8.5-10.1) mg/dl Phosphorus 3.1 (2.5-4.9) mg/dl Magnesium 2.2 (1.8-2.4) mg/dl 07/07/21 07/06/21 Range/Units 06:23 22:33 WBC 7.97 (4.8-10.8) K/uL RBC 4.11 L (4.2-5.4) M/uL Hgb 12.3 (12.0-16.0) g/dL Hct 37.8 (37-47) % MCV 92.0 (80-100) fL MCH 29.9 (25-34) pg MCHC 32.5 (32-36) g/dL RDW Std Deviation 52.1 H (36.4-46.3) fL RDW Coeff of Aurelio 15.7 H (11.5-14.5) % Plt Count 278 (130-400) K/uL MPV 10.6 H (7.4-10.4) fL Immature Gran % (Auto) 0.5 % Neut % (Auto) 73.0 % Lymph % (Auto) 18.3 % [place] % (Auto) 6.1 % Eos % (Auto) 1.8 % Baso % (Auto) 0.3 % Neut # (Auto) 5.82 (1.4-6.5) K/uL Lymph # (Auto) 1.46 (1.2-3.4) K/uL [place] # (Auto) 0.49 (0.11-0.59) K/uL Eos # (Auto) 0.14 (0-0.5) K/uL Baso # (Auto) 0.02 (0-0.2) K/uL Immature Gran # (Auto) 0.04 H (0.00-0.02) K/uL APTT 71.6 H* (21.0-31.0) Seconds PTT Ratio 2.7 Sodium (136-145) mmol/L Potassium (3.5-5.1) mmol/L Chloride (98-107) mmol/L Carbon Dioxide (21-32) mmol/L Anion Gap (3-11) BUN (7-18) mg/dl Creatinine (0.6-1.2) mg/dl Est Cr Clr Drug Dosing ml/min Est GFR ( Amer) ml/min Est GFR (Non-Af Amer) ml/min BUN/Creatinine Ratio (10-20) Glucose (70-99) mg/dl Calcium (8.5-10.1) mg/dl Phosphorus (2.5-4.9) mg/dl Magnesium (1.8-2.4) mg/dl Resident Activity Tracking Resident Involvement: Resident Care Provided Care Provided: [facility]
[2021-07-07] MEDS: HEPARIN SODIUM/DEXTROSE 25,000 UNITS/500 ML BAG IV SCH (21:45)
[2021-07-08 00:13] LABS: Anti-Thrombin III Activity 119 % normal (80-135); PTT LA Screen 33 sec (<=40); Protein S Functional(Activity) 78 % (60-140)
[2021-07-08 05:07] LABS: B2 Glycoprotein IgG <2.0 U/mL (<20.0); B2 Glycoprotein IgM 5.3 U/mL (<20.0)
--- NOTE | 2021-07-08 06:23 | Hospitalist Progress Note ---
Date of Service July 08, 2021 Assessment & Plan (1) Bilateral pulmonary embolism: Plan: Patient is a pleasant 80 year old female with PMHx HTN, HLD, CKD stage 3a, Varicose Veins, Melanoma, who presents with chief complaint of 6 month history of worsening SOB with exertion, acutely worsened 1 week ago when she was unable to catch her breath after a "panic attack," found to have large bilateral pulmonary emboli with right heart strain in addition to a masslike consolidation lesion in the right upper lung field. Bilateral PE w/ right heart strain -- with acute hypoxic respiratory failure - Patient has been hemodynamically stable. - Work-up as follows: - Bilateral LE venous dopplers positive for DVTs (R>L) - CTA chest 07/05 shows extensive bilateral PEs with right heart strain, plus cardiomegaly; chronicity of PEs unknown - On admission, PESI score 130, class V with very high risk 10-24.5% 30 day mortality - BNP 7000 (no HF history), EKG w/ NSR, troponin negative, - Hypercoagulable panel drawn, pending - TTE shows moderate to severe dilation of RV with RV systolic pressure elevated at 40-50 mmHg; normal LV function with mild LV hypertrophy - Troponin I negative - CXR 07/07: Nodular biapical opacities re-demonstrated. Large hiatal hernia. Cardiomegaly. No evidence of pulmonary edema. - Continue heparin drip with monitoring of aPTT and platelet count * Transition to Eliquis 10mg b.i.d. x 3 days, thereafter transition to 5mg b.i.d. - Continue to wean supplemental O2; patient is not on supplemental O2 at [facility] - PT/OT ordered -- PT recommending STR placement once medically stable (patient does live at home alone and is typically independents with ADLs but currently below her functional baseline) Right Heart Dilation / Strain -- in setting of bilateral pulmonary emboli - No previous history of CHF prior to admission - TTE demonstrating moderate to severe dilation of RV with RV systolic pressure elevated at 40-50 mmHg; normal LV function with mild LV hypertrophy, no RMWAs - Secondary to PEs, as above -- thankfully hemodynamically stable without overt signs of right heart failure - Continue metoprolol succinate - ?ACEI - Monitor I&Os, volume status -- careful usage of Lasix p.r.n. Apical Lung Lesions -- history of melanoma at age 29, no history of tobacco use - RUL/NIK pulmonary lesions ( 4-cm R apical opacity, as well as similar opacity in the L apex) discovered on CTA at admission -- radiology impression concerning for neoplastic vs. infectious etiologies - Procal negative, BioFire drawn to evaluate for infectious processes -- both negative - Concerning for malignancy in setting of b/l DVTs and PEs without other infectious-like findings or symptoms - Plan to repeat CT in 3 months to assess for change in opacities - Consider pulmonary consultation as outpatient to determine best route for tissue biopsy, if indicated after repeat CT Bilateral DVTs - As above RLE Cellulitis, Edema - Suspicious for cellulitis due to venous stasis from bilateral DVTs +/- chronic venous insufficiency - Leukocytosis on admission at 14.7, now resolved - Continue cephalexin, renally dosed -- end 07/12/21 - Compression stockings. Elevated LEs. Chronic Problems Hypertension: Continue home metoprolol Dispo: Med/Surg Telemetry FEN: HH diet DVT: Heparin gtt Code: DNR/DNI (2) Mass of right lung: Admission and Anticipated Discharge Date Admission Date: July 04, 2021 Subjective No acute events overnight. Patient seen at the bedside this morning, reporting persistent coughing that is worsened with exertion. She does say that when she tries to take a deep breath, does result in coughing. The cough is nonproductive. Is been stable since admission. She still feels that she gets short of breath quite easily with ambulation. She denies any pain. Denies any chest discomfort. Endorses a good appetite. Denies any nausea, vomiting. Passing gas. Review of Systems Review of Systems: as per HPI Physical Exam 2 Physical Exam: General: Well-appearing 80-year-old female who is sitting back in her hospital chair, relaxed, upon my arrival. No acute distress. HEENT: Cardiac: Normal rate, regular rhythm, intermittent ectopy; S1 and S2 present without murmurs rubs or gallops Pulmonary: Frequent coughing. Easy respiratory effort with symmetric expansion of the chest. No use of accessory muscles. Lungs are clear to auscultation bilaterally without crackles or wheezes. No conversational dyspnea. Abdominal: Abdomen is soft, nontender, and nondistended to palpation. Extremities: Examination of the right lower extremity does reveal an edematous and erythematous calf with skin marking in place. Skin appears wrinkled. There is 3+ pitting edema. Examination of the left lower extremity reveals 2+ pitting edema. Capillary refill in each foot is under 3 seconds. Results & Data Results & Data ([facility]) Vital Signs (Past 12 Hours) Vital Signs Temp Pulse Pulse Resp BP Pulse Ox 07/08/21 04:31 36.6 C 68 16 116/68 93 07/08/21 00:03 36.4 C L 80 20 112/68 94 07/07/21 23:00 83 07/07/21 20:03 36.6 C 85 20 98/64 L 98 Resident Activity Tracking Resident Involvement: Resident Care Provided Care Provided: [facility]
[2021-07-08] MEDS: cephALEXin 250 MG CAP PO SCH ×3 (08:10→17:11)
[2021-07-08] MEDS: GABAPENTIN 300 MG CAP PO SCH (08:10)
[2021-07-08] MEDS: METOPROLOL SUCC 25MG EXT REL TAB PO SCH (08:10)
[2021-07-08] MEDS: DULoxetine HCL 20 MG CAP PO SCH (08:11)
--- NOTE | 2021-07-08 08:26 | Medical Student Progress Note ---
Date of Service July 08, 2021 Assessment & Plan (1) Cellulitis: (2) Bilateral pulmonary embolism: (3) Mass of right lung: (4) DVT, bilateral lower limbs: (5) Hypertension: Hypertension type: essential hypertension Qualified Code(s): I10 - Essential (primary) hypertension (6) Hyperlipidemia: Plan: 80 yo F with minimal PMH admitted for workup of and management of new BL PE&DVT. 1) BL PE with right heart strain - Discontinue heparin drip - Transition to Eliquis 10mg b.i.d. x 3 days, thereafter transition to 5mg b.i.d. - echo as above 2) BL DVT - Venous Doppler study positive for BL DVT more right than left - Continue Lasix 10 mg PO - pt advised to use compression stockings - anticoagulation as above 3) Suspected Cellulitis - Suspicious for cellulitis due to venous stasis from bilateral DVTs vs. chronic venous insufficiency - Leukocytosis on admission at 14.7, now resolved - Continue cephalexin, renally dosed -- end 07/12/21 4) RT heart dilation 2/2 BL PE - expected from her blood clots. will improve as her clots resolve 5) Apical Lung Lesions - Likely metastatic lesions. Repeat CT in 3 months to assess for changes. - colonoscopy completed in 2019 - outpatient follow up with hematology/pcp stable for discharge to rehab today Admission and Anticipated Discharge Date Admission Date: July 04, 2021 Subjective 80 y/o female with a h.o HNPP and Anemia is 4 days s/p admission for BL PE. PT states at the start of COVID she had Sx of HENLEY and difficult to catch her breath. One week ago she noticed worsening HENLEY in addition to BL leg swelling. She initially attributed her HENLEY to a cold and attempted to self Tx with OTC medications which did not provide relief. She noticed that the swelling in her legs was worse in her right compared to her left. And she also noticed a clear sticky fluid seep out from her ankles. 6 months ago she noticed weakness. She states she is feeling better since being admitted to the hospital. And yesterday was the first day she had solid stool. She denies pain with inspiration. And denies fevers, chills, night sweats. She says she can come off of the oxygen is she is just sitting and not have any negative Sx. However, she is not comfortable with physical activity without coming off the oxygen. She does continue to have a mild non-productive cough. PMSHx: Vericose Veins FHx: Blood Clots (Mother) Tobacco: Never Smoked. Physical Exam Physical Exam: General: NAD. pleasant affect. Responding appropriately to questions. HEENT: No visible discharge from the eyes. No cervical lymphadenopathy. Cardio: RRR. No rubs, murmurs or gallops. Significant edema in her right leg. Mild pitting edema to her left leg. PULM: Lungs clear to auscultation BL. ABD: Normal bowel movements. Skin: Erythematous patch to the anterior portion of her right leg. Mildly tender to palpation. Urinary: No pain with urination, no bloody urine Psych: AOX3 Neuro: CN II - XII intact. UE strength 5/5. Left LE strength 5/5. Results & Data ([facility]) Vital Signs (Past 12 Hours) Vital Signs Temp Pulse Pulse Resp BP Pulse Ox 07/08/21 07:34 36.8 C 83 20 135/72 93 07/08/21 07:05 81 07/08/21 04:31 36.6 C 68 16 116/68 93 07/08/21 00:03 36.4 C L 80 20 112/68 94 07/07/21 23:00 83 Diagnostic Findings Venous Doppler: 1. BL DVT more right than left CXR: 1. Redemonstration of nodular biapical opacities. These favor an infectious process however radiographic follow-up is recommended to ensure resolution and exclude the possibility of a neoplastic process. 2. Large hiatal hernia. 3. Cardiomegaly. No evidence for pulmonary edema. Chest CT: 1. Extensive bilateral pulmonary emboli with CT evidence for right heart strain. 2. Multifocal upper lobe predominant consolidation. This favors an infectious process such as viral pneumonia. 4 cm irregular right apical opacity which accounts for the finding on chest radiograph. This is likely infectious given similar appearing findings within the left lung apex. However, an underlying neoplasm cannot be excluded and therefore a follow-up chest CT in 3 months to ensure resolution is recommended. 3. Cardiomegaly. 4. Large hiatal hernia which contains a portion of the stomach and transverse colon.
[2021-07-08 09:10] LABS: Basophils # (auto) 0.03 K/uL (0-0.2); Basophils % (auto) 0.4 %; Eosinophils # (auto) 0.11 K/uL (0-0.5); Eosinophils % (auto) 1.3 %; Hemoglobin 13.1 g/dL (12.0-16.0); Immature Granulocytes # (auto) 0.04 K/uL (0.00-0.02); Immature Granulocytes % (auto) 0.5 %; Lymphocytes # (auto) 1.34 K/uL (1.2-3.4); Lymphocytes % (auto) 16.1 %; Mean Corpuscular Hemoglobin 30.4 pg (25-34); Mean Corpuscular Hgb Conc 32.8 g/dL (32-36); Mean Corpuscular Volume 92.8 fL (80-100); Monocytes # (auto) 0.28 K/uL (0.11-0.59); Monocytes % (auto) 3.4 %; Neutrophils # (auto) 6.54 K/uL (1.4-6.5); Neutrophils % (auto) 78.3 %; Platelet Count 292 K/uL (130-400); RDW Coefficient of Variation 15.7 % (11.5-14.5); RDW Standard Deviation 53.4 fL (36.4-46.3); Red Blood Count 4.31 M/uL (4.2-5.4); White Blood Count 8.34 K/uL (4.8-10.8)
[2021-07-08 09:26] LABS: Partial Thromboplastin Ratio 1.5; Partial Thromboplastin Time 38.7 Seconds (21.0-31.0)
[2021-07-08 09:46] LABS: BUN Creatinine Ratio 11.6 (10-20); Calcium 9.2 mg/dl (8.5-10.1); Creatinine Clr Calc Pharmacy 51.6 ml/min; Est GFR (African American) 65.6 ml/min; Est GFR (Non-African American) 56.6 ml/min; Phosphorus 2.9 mg/dl (2.5-4.9); Potassium 4.1 mmol/L (3.5-5.1)
--- NOTE | 2021-07-08 13:32 | Discharge Summary ---
Date of Service July 08, 2021 Admission HPI Per Admitting Provider Patient is a pleasant 80 year old female with PMHx HTN, HLD, CKD stage 3a, Varicose Veins, Melanoma, who presents with chief complaint of 6 month history of worsening SOB with exertion, acutely worsened 1 week ago when she was unable to catch her breath after a "panic attack," found to have large bilateral pulmonary emboli with right heart strain in addition to a masslike consolidation lesion in the right upper lung field. Patient notes that for the past 6 months she has noted some L sided lateral chest/rib discomfort whenever she would exert herself. She also notes that for the past 1 month she has had an ongoing wet cough which she was tested for COVID-19 2 weeks ago and found to be negative. She notes 1 week ago she had an episode of SOB where she feels she had a "panic attack" and was unable to catch her breath or recover. She has also noticed worsening swelling of her LE b/l in the past 1-2 weeks. She notes a history of varicose veins with vein stripping in her 20's, but states that they ended up returning anyways. She also notes a history of melanoma on her back that was removed at age 29. She denies any history of blood clots. She does note SOB with exertion now in addition to LE swelling and tenderness in her legs b/l, L>R. She denies any current chest pain, chest pressure, fever, chills, abdominal pain, dysuria, NVD. Med Hx: HTN, HLD, CKD stage 3a, Varicose Veins, Melanoma Surg Hx: Varicose vein ablation Soc Hx: Denies tobacco, alcohol, illicit drug use Admission Exam Per Admitting Provider Constitutional: well developed, well nourished and + ill appearing; no acute distress Eyes: PERRL, conjunctivae normal, anicteric sclerae ENMT: external ear and nose normal, oropharynx normal Neck: trachea midline, no thyromegaly Respiratory: normal respiratory effort and + cough; no respiratory distress Auscultation: lungs clear to auscultation bilaterally and + diminished lung sounds (at bases) Cardiovascular: Rate/Rhythm: regular rate and regular rhythm Heart Sounds: no murmur Extremities: + calf tenderness (b/l worse on R thank L ) and + edema (2- 3+ b/l to the knee ) Gastrointestinal (Abdomen): normal bowel sounds, soft, nontender, no hepatosplenomegaly Musculoskeletal: Head/Neck/Chest: normocephalic and head atraumatic Skin: + rash (warmth and redness of the medial R ankle ) Neurologic: PERRL, EOMI, accommodation nl, no face palsy, no dysarthria moves all extremities B Psychiatric: A+Ox3, euthymic affect Principal Diagnosis bilateral pulmonary emboli bilateral lower extremity DVTs apical lung lesions (R>L) Discharge Exam General: Well-appearing 80-year-old female who is sitting back in her hospital chair, relaxed, upon my arrival. No acute distress. Cardiac: Normal rate, regular rhythm, intermittent ectopy; S1 and S2 present without murmurs rubs or gallops Pulmonary: Frequent coughing. Easy respiratory effort with symmetric expansion of the chest. No use of accessory muscles. Lungs are clear to auscultation bilaterally without crackles or wheezes. No conversational dyspnea. Abdominal: Abdomen is soft, nontender, and nondistended to palpation. Extremities: Examination of the right lower extremity does reveal an edematous and erythematous calf with skin marking in place. Skin appears wrinkled. There is 3+ pitting edema. Examination of the left lower extremity reveals 2+ pitting edema. Capillary refill in each foot is under 3 seconds. Discharge Data Allergies Allergy/AdvReac Type Severity Reaction Status Date / Time animal dander Allergy Intermediate CONGESTION Verified 07/04/21 18:19 mold Allergy Intermediate CONGESTION Verified 07/04/21 18:19 pollen extracts Allergy Intermediate CONGESTION Verified 07/04/21 18:19 adhesive tape Allergy Mild SKIN Verified 07/04/21 18:19 IRRITATION fluoxetine [From Prozac] Allergy Unknown Unknown Verified 07/04/21 18:19 Influenza Virus Vaccines Allergy Unknown Unknown Verified 07/04/21 18:19 latex Allergy Unknown Unknown Verified 07/04/21 18:19 NSAIDS (Non-Steroidal AdvReac Intermediate POSSIBLE Verified 07/04/21 18:19 Anti-Inflamma KIDNEY DAMAGE PER PT. Consultations 07/04/21 22:36 ED Decision to Admit Stat Ordered Studies 07/07/21 CHEST X-RAY IMPRESSION: 1. Redemonstration of nodular biapical opacities. These favor an infectious process however radiographic follow-up is recommended to ensure resolution and exclude the possibility of a neoplastic process. 2. Large hiatal hernia. 3. Cardiomegaly. No evidence for pulmonary edema. 07/04/21 20:06 CT angio chest PE protocol Urgent IMPRESSION: 1. Extensive bilateral pulmonary emboli with CT evidence for right heart strain. 2. Multifocal upper lobe predominant consolidation. This favors an infectious process such as viral pneumonia. 4 cm irregular right apical opacity which accounts for the finding on chest radiograph. This is likely infectious given similar appearing findings within the left lung apex. However, an underlying neoplasm cannot be excluded and therefore a follow-up chest CT in 3 months to ensure resolution is recommended. 3. Cardiomegaly. 4. Large hiatal hernia which contains a portion of the stomach and transverse colon. 07/04/21 23:22 US venous doppler LE BI Routine Impression: Positive for bilateral DVT, right greater than left. Hospital Course (1) Bilateral pulmonary embolism: Patient is a pleasant 80 year old female with PMHx HTN, HLD, CKD stage 3a, Varicose Veins, Melanoma, who presents with chief complaint of 6 month history of worsening SOB with exertion, acutely worsened 1 week ago when she was unable to catch her breath after a "panic attack," found to have large bilateral pulmonary emboli (chronicity unknown) with right heart strain in addition to a masslike consolidation lesion in her lung apices. She remained hemodynamically sharonda during her visit. Her PEs were treated acutely with Bilateral PE w/ right heart strain -- with acute hypoxic respiratory failure - Patient has been hemodynamically stable. - Work-up as follows: - Bilateral LE venous dopplers positive for DVTs (R>L) - CTA chest 07/05 shows extensive bilateral PEs with right heart strain, plus cardiomegaly; chronicity of PEs unknown - On admission, PESI score 130, class V with very high risk 10-24.5% 30 day mortality - BNP 7000 (no HF history), EKG w/ NSR, troponin negative, - Hypercoagulable panel drawn, pending at discharge - TTE shows moderate to severe dilation of RV with RV systolic pressure elevated at 40-50 mmHg; normal LV function with mild LV hypertrophy - Troponin I negative - CXR 07/07: Nodular biapical opacities re-demonstrated. Large hiatal hernia. Cardiomegaly. No evidence of pulmonary edema. - Anticoagulation provided in form of heparin gtt while here * Transition to Eliquis 10mg b.i.d. x 3 days (end 07/11 PM), thereafter transition to 5mg b.i.d. at discharge - Successfully weened off O2 prior to discharge - PT/OT ordered -- PT recommending STR placement once medically stable Right Heart Dilation / Strain -- in setting of bilateral pulmonary emboli - No previous history of CHF prior to admission - TTE demonstrating moderate to severe dilation of RV with RV systolic pressure elevated at 40-50 mmHg; normal LV function with mild LV hypertrophy, no RMWAs - Secondary to PEs, as above -- thankfully hemodynamically stable without overt signs of right heart failure - Continue metoprolol succinate - No signs or symptoms of right heart failure while here Apical Lung Lesions -- history of melanoma at age 29, no history of tobacco use - RUL/NIK pulmonary lesions ( 4-cm R apical opacity, as well as similar opacity in the L apex ) discovered on CTA at admission -- radiology impression concerning for neoplastic vs. infectious etiologies - Procal, BioFire drawn to evaluate for infectious processes -- both negative - Concerning for malignancy in setting of b/l DVTs and PEs without other infectious-like findings or symptoms - Plan to repeat CT in 3 months to assess for change in opacities - Consider pulmonary consultation as outpatient to determine best route for tissue biopsy, if indicated after repeat CT Bilateral DVTs - As above RLE Cellulitis and Edema - Suspicious for cellulitis due to venous stasis from bilateral DVTs +/- chronic venous insufficiency - Leukocytosis on admission at 14.7, resolved prior to discharge - Continue cephalexin, renally dosed -- end 07/12/21 - Compression stockings. Elevated LEs. Chronic Problems Hypertension: Continue home metoprolol Code: Patient identified as DNR/DNI (2) Mass of right lung: Total Time Total Time Spent Total Time Spent (In Minutes): >30 Discharge Plan Discharge Items Patient Disposition: Transfer Inpatient Rehab Fac Reason For Visit: PE Discharge Diagnosis: bilateral pulmonary emboli bilateral lower extremity DVTs apical lung lesions (bilateral) Activity: Per Instructions section Non-emergency contact: Primary Care Provider Call non-emergency contact if: you have any medication questions, your symptoms worsen, your pain is worsening, your pain is unusual for you and your temperature is above 101.5 Follow-up/Referrals: Hoang Hawley MD [Primary Care Provider] - Diet: Regular Addtl Attending Provider Instructions: Patient is a pleasant 80 year old female with PMHx HTN, HLD, CKD stage 3a, Varicose Veins, Melanoma, who presents with chief complaint of 6 month history of worsening SOB with exertion, acutely worsened 1 week ago when she was unable to catch her breath after a "panic attack," found to have large bilateral pulmonary emboli (chronicity unknown) with right heart strain in addition to a masslike consolidation lesion in her lung apices. She remained hemodynamically sharonda during her visit. Her PEs were treated acutely with Bilateral PE w/ right heart strain -- with acute hypoxic respiratory failure - Patient has been hemodynamically stable. - Work-up as follows: - Bilateral LE venous dopplers positive for DVTs (R>L) - CTA chest 07/05 shows extensive bilateral PEs with right heart strain, plus cardiomegaly; chronicity of PEs unknown - On admission, PESI score 130, class V with very high risk 10-24.5% 30 day mortality - BNP 7000 (no HF history), EKG w/ NSR, troponin negative, - Hypercoagulable panel drawn, pending at discharge -- f/u on results - TTE shows moderate to severe dilation of RV with RV systolic pressure elevated at 40-50 mmHg; normal LV function with mild LV hypertrophy - Troponin I negative - CXR 07/07: Nodular biapical opacities re-demonstrated. Large hiatal hernia. Cardiomegaly. No evidence of pulmonary edema. - Anticoagulation provided in form of heparin gtt while here * Transition to Eliquis 10mg (5mg x 2) b.i.d. x 3 days (end 07/11 PM), thereafter transition to 5mg b.i.d. (begin 07/12) - Successfully weened off O2 prior to discharge - PT/OT ordered -- PT recommending STR placement once medically stable Right Heart Dilation / Strain -- in setting of bilateral pulmonary emboli - No previous history of CHF prior to admission - TTE demonstrating moderate to severe dilation of RV with RV systolic pressure elevated at 40-50 mmHg; normal LV function with mild LV hypertrophy, no RMWAs - Secondary to PEs, as above -- thankfully hemodynamically stable without overt signs of right heart failure - Continue metoprolol succinate - No signs or symptoms of right heart failure while here Apical Lung Lesions -- history of melanoma at age 29, no history of tobacco use - RUL/NIK pulmonary lesions ( 4-cm R apical opacity, as well as similar opacity in the L apex ) discovered on CTA at admission -- radiology impression concerning for neoplastic vs. infectious etiologies - Procal, BioFire drawn to evaluate for infectious processes -- both negative - Concerning for malignancy in setting of b/l DVTs and PEs without other infectious-like findings or symptoms - Plan to repeat CT in 3 months to assess for change in opacities - Consider pulmonary consultation as outpatient to determine best route for tissue biopsy, if indicated after repeat CT Bilateral DVTs - As above RLE Cellulitis and Edema - Suspicious for cellulitis due to venous stasis from bilateral DVTs +/- chronic venous insufficiency - Leukocytosis on admission at 14.7, resolved prior to discharge - Continue cephalexin, renally dosed, q.i.d. -- end 07/12/21 - Promote compression stockings. Elevated LEs. - Re-evaluate in 5 days' time. Consider intensifying / prolonging therapy if unresolved. Chronic Problems Hypertension: Continue home metoprolol Code: Patient identified as DNR/DNI Pending Studies at Discharge: Yes Studies:: Hypercoagulability panel Stand-Alone Forms: My [facility] Skilled Items Patient informed of condition?: Yes DNR: Yes Discharge Level of Care: Acute rehab Communicable Disease: No Discharge Prognosis: Improving Lines: None Urinary Catheter: No Medications and DC Order Prescriptions: New Eliquis 5 mg Tablet 10 mg PO BID 3 Days Qty: 13 RF: 0 apixaban 5 mg tablet 5 mg PO BID 30 Days Qty: 60 RF: 0 cephalexin 250 mg Capsule 250 mg PO QID 4 Days Qty: 16 RF: 0 Continued gabapentin 300 mg capsule 300 mg PO BID Qty: 180 RF: 3 metoprolol succinate 25 mg tablet extended release 24 hr 25 mg PO DAILY Qty: 90 RF: 3 duloxetine 20 mg capsule,delayed release(DR/EC) 20 mg PO DAILY Qty: 30 RF: 2 Discharge Orders: Discharge Order (Routine); Ordered 07/08/21 Ordered By: Gunjan Duke Admission Data Admit Date/Time: 07/04/21 23:30 Attending Provider: Kendell Medina Admit Provider: Kaz Church Primary Care Provider: Hoang Hawley Other Providers: Consuelo Ribeiro ; [facility] ; Nigel Lopez Other Interventions: Discharge Summary Assessment (RN) Last Done: 07/08/21 16:28 Supervising Physician Co-Signing Physician Notes I personally examined the patient and verified all ohara points of history and exam, discussed case, and agree with decision making with Dr Wolf. Feeling better. Breathing better, actually off of oxygen at the time I see her. Is approved/accepted at rehab, willing to go. Asked a lot of good questions which I answered to the best of my ability and to her satisfaction. Vitals noted, in general she is awake and alert pleasant no distress. HEENT normocephalic atraumatic mucous membranes moist. Breathing unlabored no accessory muscle use good effort. Skin showsno pallor or icterus, but there is an area of erythema on her anterior aranda, nontender but also she has been on antibiotics for several days neuro without focal deficits. Venous thromboembolic diseasePEs, DVTsimproving, transition to Eliquis. Right now viewing is unprovokedprobably should have long-term anticoagulation. Concern as to whether or not there is any truth to the lung mass, although on review it really does look more infiltrative than anything. Will defer to PCP for any kind of secondary work-up as an outpatient, stable for rehab. Right lower extremity cellulitisappears mild and resolvingfinish out short course of antibiotics. Resident Activity Tracking Resident Involvement: Resident Care Provided Care Provided: Adult Hospital Medicine
[2021-07-08] MEDS ORDERED: APIXABAN 5 MG TABLET PO SCH (14:15)
[2021-07-08 15:37] LABS: Partial Thromboplastin Ratio 1.1; Partial Thromboplastin Time 30.1 Seconds (21.0-31.0)
--- NOTE | 2021-07-08 19:08 | Billing Data ---
Date of Service July 08, 2021 Coding Level of Care Code D/C DAY MANAGEMENT >30 MINS
[2021-07-11 00:21] LABS: Anti Cardiolipin Ab IgM 7.4 MPL-U/mL
[2021-07-11 02:56] LABS: Factor 5 Mutation NEGATIVE
== END 2021-07-08 17:14 | DRG 299 ==
LOC: ED 17:24 → EDINP 23:30 → SUATTDRO 23:30 → EDINP 07-05 01:16 → 2N 07-05 16:28